=== PATIENT | female | born 1950 | race Caucasian/White ===

== ENCOUNTER 2022-05-03 20:28 | Emergency (ER) | payer MEDICARE, OTHER, SELFPAY | END 2022-05-03 21:40 | disposition left against medical advice (07) | PROVIDERS: Emergency Provider Emergency Medicine; PCP Nurse Practitioner Family | DX: S61.219A Laceration without foreign body of unspecified finger without damage to nail, initial encounter (principal); X58.XXXA Exposure to other specified factors, initial encounter; Y93.9 Activity, unspecified; Y92.9 Unspecified place or not applicable; Y99.9 Unspecified external cause status ==

== ENCOUNTER 2022-05-24 11:21 | Outpatient (REF) | payer MEDICARE, OTHER, SELFPAY | END 2022-05-24 11:22 | disposition home or self-care (01) | LOC: HO.LNP 11:21 | PROVIDERS: Visit Provider Nurse Practitioner Family | DX: N39.0 Urinary tract infection, site not specified (principal) | CPT/HCPCS: 87086 ==

== ENCOUNTER 2022-09-13 13:39 | Outpatient (REF) | payer MEDICARE, OTHER, SELFPAY ==
--- NOTE | ~2022-09-13 | XR_ITS ---
EXAMINATION: XR CHEST CLINICAL INFORMATION: Difficulty breathing COMPARISON: None TECHNIQUE: 2 views of the chest were obtained. FINDINGS: Lungs grossly are clear. Heart and pulmonary vessels normal. No pleural effusions. XR/XR chest 2V IMPRESSION: No active disease.
[2022-09-13 15:15] LABS: Influenza A PCR POSITIVE (Negative); Influenza B PCR NEGATIVE (Negative); Resp Syncy Virus RNA Qual PCR NEGATIVE (Negative); SARS COV2 PCR INHOUSE NEGATIVE (Negative)
== END 2022-09-13 13:40 | disposition home or self-care (01) ==
LOC: HO.HMGCX 13:39
PROVIDERS: PCP Nurse Practitioner Family; Visit Provider Nurse Practitioner Family
DX: Z20.822 Contact with and (suspected) exposure to COVID-19 (principal); R05.9 Cough, unspecified; R09.89 Other specified symptoms and signs involving the circulatory and respiratory systems; R68.89 Other general symptoms and signs
CPT/HCPCS: 0241U; 71046

== ENCOUNTER 2022-09-15 06:42 | Emergency (ER) | payer MEDICARE, OTHER, SELFPAY ==
--- NOTE | ~2022-09-15 | XR_ITS ---
EXAMINATION: XR CHEST CLINICAL INFORMATION: Flu and weakness COMPARISON: 09/13/2022 TECHNIQUE: Frontal view of the chest was obtained. FINDINGS: No significant abnormality is noted involving the heart, lungs, mediastinum, bony thorax or soft tissues. XR/XR chest 1V IMPRESSION: Unremarkable examination.
[2022-09-15 06:53] VITALS: BP 170/80; PULSE 68; RESP 16; O2SAT 96; BMI 23.1
[2022-09-15 06:59] VITALS: BP 144/69; PULSE 67; RESP 16; TEMP 36.4; O2SAT 98
[2022-09-15 07:03] VITALS: BP 154/72; PULSE 66; RESP 15; TEMP 37.1; O2SAT 96
[2022-09-15 08:28] LABS: MANUAL DIFF FLAG NO
[2022-09-15 08:30] LABS: Basophils Percent Auto 0.3 % (0-2); Eosinophils Percent Auto 0.3 % (0-4); Hemoglobin 11.8 g/dl (12.0-16.0); Imm Gran Abs Auto 0.01 X10*3/uL (0.00-0.03); Imm Gran Pct Auto 0.3 % (0.0-0.4); Lymphocytes Absolute Auto 0.8 X10*3/uL (1.2-4.9); Lymphocytes Percent Auto 23.1 % (20-40); Mean Corpuscular HGB Conc 32.8 g/dl (31.0-35.0); Mean Corpuscular Hemoglobin 27.8 pg (27.0-33.0); Mean Corpuscular Volume 84.9 fL (80.0-98.0); Mean Platelet Volume 10.4 fL (9.4-12.3); Monocytes Absolute Auto 0.5 X10*3/uL (0.1-1.2); Monocytes Percent Auto 12.8 % (2-11); Neutrophils Absolute Auto 2.3 x10*3/uL (2.0-8.3); Neutrophils Percent Auto 63.2 % (45-73); Platelet Count 184 X10*3/uL (160-400); Red Blood Count 4.24 X10*6/uL (4.20-5.50); Red Cell Distribution Width 13.9 % (11.0-16.0); White Blood Count 3.6 X10*3/uL (4.8-10.8)
[2022-09-15 08:51] LABS: Alanine Aminotransferase 19 U/L (0-31); Alkaline Phosphatase 72 U/L (39-117); Anion Gap 12 (12-20); Aspartate Amino Transferase 37 U/L (5-31); Bilirubin Total 0.5 mg/dL (0.0-1.0); Blood Urea Nitrogen 10 mg/dL (9-16); Calcium 8.6 mg/dL (8.4-10.2); Carbon Dioxide 24 mmol/L (22-29); Chloride 100 mmol/L (96-108); Creatinine Clr Calc Pharmacy 64.5; Estimated Glomerular Filt Rate > 60; Glucose Random 102 mg/dL (60-115); Sodium 132 mmol/L (135-145); Total Protein 6.4 g/dL (6.5-8.0)
--- NOTE | 2022-09-15 09:09 | ED.URI ---
HPI - URI/Sore Throat General Chief Complaint: Upper Respiratory Symptoms Stated Complaint: +FLU,WEAKNESS PER EMS Time Seen by Provider: 09/15/22 08:02 Source: patient Mode of arrival: ambulatory Limitations: no limitations History of Present Illness HPI Narrative: 72-year-old female diagnosed with this influena A at [facility], chest x-ray was done, and was started on Tessalon Perles and azithromycin for treatment of possible pneumonia. The patient was given direction to stop azithromycin as chest x-ray was negative for pneumonia. She states the tessalon perles have not help alleviate her cough. The at this time she is complaining of weakness, nausea, and dizziness. She states she has not been able to tolerate much p.o. intake, however; she states she has had no difficulty urinating. She denies any fever, chills, headache, changes of vision, falls or loss of balance, or gait changes. MD elicited complaint: cough and sore throat Onset (ago): day(s) (6) Consistency: constant Severity: moderate Pain scale (0-10): 5 Description of mucous: clear Able to tolerate fluids by mouth: Yes (moderate) Exacerbating factors: swallowing Relieving factors: nothing Associated symptoms: denies other symptoms Treatments prior to arrival: none Related Data Home Medications Medication Instructions Recorded Confirmed citalopram 10 mg tablet 10 mg PO DAILY 05/24/22 09/13/22 ibuprofen 800 mg tablet 800 mg PO BID PRN 05/24/22 09/13/22 levothyroxine 50 mcg tablet 50 mcg PO DAILY 05/24/22 09/13/22 omeprazole 40 mg capsule,delayed 40 mg PO DAILY 05/24/22 09/13/22 release rosuvastatin 5 mg tablet 5 mg PO DAILY 05/24/22 09/13/22 hydroxychloroquine 200 mg tablet 200 mg PO BID 09/13/22 09/13/22 Previous Rx's Medication Instructions Recorded phenazopyridine 100 mg tablet 100 mg PO TID PRN pain 2 days #6 05/24/22 (Pyridium) tabs sulfamethoxazole 800 1 tab PO Q12H 5 days #10 tabs 05/24/22 mg-trimethoprim 160 mg tablet (Bactrim DS) albuterol sulfate 90 mcg/actuation 2 puff inhalation Q4-6H PRN 09/13/22 aerosol inhaler shortness of breath or wheezing #8.5 grams azithromycin 250 mg tablet See Rx Instructions PO .COMPLEX #6 09/13/22 (Zithromax Z-Claude) tabs benzonatate 100 mg capsule 100 mg PO TID PRN cough #20 caps 09/13/22 ondansetron 4 mg disintegrating 4 mg PO Q6-8H PRN nausea and 09/13/22 tablet vomiting #20 tabs diphenhydramine HCl 25 mg capsule 25 mg PO TID PRN nausea and 09/15/22 (Benadryl) vomiting #10 caps metoclopramide HCl 5 mg tablet 10 mg PO BID PRN nausea and 09/15/22 (Reglan) vomiting #10 tabs Allergies Allergy/AdvReac Type Severity Reaction Status Date / Time acetazolamide Allergy Intermediate HEART PALP Unverified 09/13/22 12:50 [From DIAMOX SEQUELS] amoxicillin [AMOXICILLIN] Allergy Intermediate RASH Unverified 09/13/22 12:50 prednisone Allergy Unknown paplpitations, Verified 09/13/22 12:50 insomnia amoxiciilin Allergy Unknown Rash Uncoded 09/13/22 12:50 Diamox Sequels Allergy Unknown rapid Uncoded 09/13/22 12:50 heart rate visceral sutures Allergy Unknown not healing Uncoded 09/13/22 12:50 Review of Systems Review of Systems: In addition to documented HPI above, the additional ROS was obtained: Constitutional: No Weight loss, No Fever, No Chills ENT/Mouth: No Ear Pain, No Sinus Pain, No Hoarseness, No Swallowing Difficulty Cardiovascular: No Chest Pain, No SOB Respiratory: No Wheezing Gastrointestinal: No Diarrhea, No Constipation, No Abdominal pain Genitourinary: No Dysuria, No Urinary Frequency, No Hematuria, No Urinary Incontinence/retention, No Urgency, No Flank Pain Musculoskeletal: No joint pain, No Myalgias, No Joint Swelling Skin: No Skin Lesions, No rash Neuro: No Weakness, No Numbness, No Paresthesias0 Yes all other systems are reviewed and are negative [facility] Past Medical History Attestation statement: The following information was validated with the patient. Source: old records reviewed Social History Social History Smoked in Last 30 Days: No Use of substances other than those prescribed or required for medical reasons: No Advance Directives: No Physical Exam Vital Signs: Vital Signs: Last Vital Signs Temp 97.5 F 09/15/22 10:17 Pulse 61 09/15/22 10:17 Resp 16 09/15/22 10:17 BP 156/73 H 09/15/22 10:17 Pulse Ox 98 09/15/22 10:38 O2 Del Method 09/15/22 10:38 BMI result Body Mass Index 23.1 Const: General: cooperative, alert and awake Nutritional Appearance: well nourished Orientation/consciousness: patient oriented x3 Limitations: no limitations HEENT: Head: Yes normal to inspection, Yes normocephalic and Yes atraumatic Ears: hearing grossly normal bilaterally, external ears normal and TM's normal bilaterally General nose exam: Normal external nose present and Normal nares present Face and sinus: Yes normal facial exam, Yes sinuses nontender and Yes face symmetric Mouth: Normal oral and palatal mucosa present Teeth and gingiva: dentition normal Throat: Yes posterior oropharynx normal Eyes: General: appearance normal, both eyes and all related structures Visual Rooney: normal visual rooney by confrontation Alignment and Position: alignment normal Periorbital: periorbital findings normal Eyelids: Yes eyelids normal Conjunctivae: conjunctivae normal Sclerae: sclerae normal Corneas: corneas normal Pupils: Equal, round and reactive pupils present EOM: EOMs intact bilaterally Neck: Neck: Yes normal visual inspection, Yes full ROM and Yes no lymphadenopathy Chest: Chest palpation & inspection: normal inspection of the chest Resp: Effort & Inspection: normal respiratory effort, Actively coughing and not labored Auscultation: no crackles, no rhonchi, no wheezes and diminished lung sounds bilateral throughout Cardio: Rate: regular rate Rhythm: regular rhythm GI: Inspection: Yes normal to inspection Palpation (GI): Soft to palpation and nontender Auscultation: normal bowel sounds : General: Yes no CVA tenderness Back/Spine/Pelvis: Back: no CVA tenderness Cervical Spine: cervical ROM normal Thoracic/Lumbar Spine: thoraco-lumbar ROM normal Skin: General skin exam: no rashes or lesions noted Neuro: General: patient oriented x3, tone normal and moves all extremities Cranial nerves: Yes Equal, round and reactive pupils present Cognition (Neuro): normal cognition Gait exam (Neuro): Normal gait present Motor exam (neuro): 5/5 motor strength present throughout Extrem: General: Yes normal to inspection, Yes full ROM and Yes capillary refill normal Psych: Appearance: grossly normal Mental Status: mental status grossly normal Speech and movement: Normal speech and movement present Affect: normal affect Attitude: cooperative Thought process: Normal thought process present Thought content: Normal thought content present Course Course Course Narrative: 0900: 1 L NS and IV zofran to be given for c/o weakness and nausea 1100: Pt states mild improvement in dizziness and weakness after NS bolus. Endorses continued nausea despite treatment with zofran. IV Reglan ordered. Urinalysis unremarkable. Blood work unremarkable based on HPI of nausea/vomiting. 1115: Additional 1 L NS bolus and reglan ordered for continued nausea 1215: Pt states improvement in dizziness, weakness, and nausea. Plan to discharge patient home with prescribed Reglan and Benadryl for antiemetics. Plan discussed with patient with no unanswered questions. Medications Administered Discontinued Medications Generic Name Dose Route Start Last Admin Trade Name Freq PRN Reason Stop Dose Admin Sodium Chloride 1,000 mls @ 999 mls/hr 09/15/22 09:00 09/15/22 11:30 Ns IV 09/15/22 10:00 Infused .Q1H1M JUWAN Infusion Sodium Chloride 1,000 mls @ 999 mls/hr 09/15/22 11:45 09/15/22 11:36 Ns IV 09/15/22 12:45 999 mls/hr .Q1H1M JUWAN Administration Metoclopramide HCl 10 mg 09/15/22 11:23 09/15/22 11:31 Metoclopramide Hcl 10 Mg/2 Ml Vial IVPUSH 09/15/22 11:24 10 mg ONCE ONE Administration Ondansetron HCl 4 mg 09/15/22 09:20 09/15/22 09:36 Ondansetron Hcl 4 Mg/2 Ml Vial IVPUSH 09/15/22 09:21 4 mg ONCE ONE Administration Medical Decision Making Medical Decision Making [facility] Narrative: 72-year-old female diagnosed with this influena A at [facility], chest x-ray was done, and was started on Tessalon Perles and azithromycin for treatment of possible pneumonia. Chest Xray unremarkable for cardiopulmonary pathology. Urinalysis unremarkable. Blood work unremarkable based on HPI of nausea/vomiting. Zofran given with no reduction in nausea. 2 L normal saline bolus given and IV Reglan given with improvement in dizziness, weakness, and nausea. Pt states improvement in dizziness, weakness, and nausea. Patient safe for discharge with plan to use prescribed Reglan and Benadryl for antiemetics and to use Tylenol and/or Motrin for management fever or discomfort.. HPI, PE, diagnostics and plan discussed with patient with no unanswered questions at this time. Educated to return to the emergency department with worsening dizziness, weakness, intractable nausea and/or vomiting, shortness of breath, chest pain, or any other concerning emergent symptoms. Recommended to follow-up with their primary care provider for further treatment and management. Lab Data MDM Lab Attestation statement: I reviewed the patient's lab results. Result Diagrams: 09/15/22 08:18 09/15/22 08:18 Labs: Lab Results 09/15/22 09/15/22 09/15/22 Range/Units 08:18 08:18 10:21 WBC 3.6 L (4.8-10.8) X10*3/uL RBC 4.24 (4.20-5.50) X10*6/uL Hgb 11.8 L (12.0-16.0) g/dl Hct 36.0 L (37.0-47.0) % MCV 84.9 (80.0-98.0) fL MCH 27.8 (27.0-33.0) pg MCHC 32.8 (31.0-35.0) g/dl RDW 13.9 (11.0-16.0) % Plt Count 184 (160-400) X10*3/uL MPV 10.4 (9.4-12.3) fL Immature Gran % (Auto) 0.3 (0.0-0.4) % Neut % (Auto) 63.2 (45-73) % Lymph % (Auto) 23.1 (20-40) % [place] % (Auto) 12.8 H (2-11) % Eos % (Auto) 0.3 (0-4) % Baso % (Auto) 0.3 (0-2) % Lymph # (Auto) 0.8 L (1.2-4.9) X10*3/uL [place] # (Auto) 0.5 (0.1-1.2) X10*3/uL Eos # (Auto) 0.0 (0.0-0.4) X10*3/uL Baso # (Auto) 0.0 (0.0-0.2) X10*3/uL Abs Immat Gran (auto) 0.01 (0.00-0.03) X10*3/uL Absolute Neuts (auto) 2.3 (2.0-8.3) x10*3/uL Absolute Nucleated RBC 0.000 (0.0-0.012) X10*3/uL Nucleated RBC % (auto) 0.0 (0.0-0.2) /100WBC Sodium 132 L (135-145) mmol/L Potassium 4.0 (3.3-5.1) mmol/L Chloride 100 (96-108) mmol/L Carbon Dioxide 24 (22-29) mmol/L Anion Gap 12 (12-20) BUN 10 (9-16) mg/dL Creatinine 0.66 (0.5-1.4) mg/dL Estim Creat Clear Calc 64.5 Estimated GFR > 60 Random Glucose 102 (60-115) mg/dL Calcium 8.6 (8.4-10.2) mg/dL Magnesium 1.9 (1.6-2.6) mg/dL Total Bilirubin 0.5 (0.0-1.0) mg/dL AST 37 H (5-31) U/L ALT 19 (0-31) U/L Alkaline Phosphatase 72 (39-117) U/L Total Protein 6.4 L (6.5-8.0) g/dL Albumin 4.0 (3.5-5.0) g/dL Urine Color Yellow Urine Appearance Clear Urine pH 7.0 (5.0-9.0) Ur Specific [place] 1.010 (1.005-1.025) Urine Protein Negative (Neg-Trace) mg/dL Urine Glucose (UA) Negative (Negative) mg/dL Urine Ketones Negative (Negative) mg/dL Urine Blood Negative (Negative) Urine Nitrite Negative (Negative) Ur Leukocyte Esterase Negative (Negative) Radiology Impression Discussion of test interpretation with radiology: I have reviewed the radiologist's reading. Radiologist Impression: EXAMINATION: XR CHEST CLINICAL INFORMATION: Flu and weakness COMPARISON: 09/13/2022 TECHNIQUE: Frontal view of the chest was obtained. FINDINGS: No significant abnormality is noted involving the heart, lungs, mediastinum, bony thorax or soft tissues. XR/XR chest 1V IMPRESSION: Unremarkable examination. ? Dictated By: Kofi Douglass MD Signed By: <Electronically signed by Kofi Douglass MD in OV> 09/15/22 0903 DD/ 0840 TD/TT:? Post Graduate Intern: Discharge Plan Discharge Clinical Impression: Influenza A, Cough Patient Disposition: Home, Self-Care Instructions: Influenza (ED), Droplet Precautions (ED), Acute Cough (ED) Additional Instructions: Your chest x-ray is negative. Your blood work is unremarkable. You have been treated today for dehydration and nausea related to influenza A. You are safe for discharge at this time. There are no antibiotics needed at this time. Two medications have been prescribed to your preferred pharmacy for control/treatment of nausea and vomiting. He may use [id number] Tylenol and/or Motrin, and [id number] cold medication with dosing as directed for management of fever and discomfort as needed. Please increase your fluid intake and rest. You may use tea with honey, hard candy, or lozenges to help with sore throat and cough. Please return to the emergency department with worsening dizziness, weakness, intractable nausea and/or vomiting, shortness of breath, chest pain, or any other concerning emergent symptoms. Recommended to follow-up with your primary care provider for further treatment and management. Prescriptions: New metoclopramide HCl [Reglan] 5 mg tablet 10 mg PO BID PRN (Reason: nausea and vomiting) Qty: 10 0RF diphenhydramine HCl [Benadryl] 25 mg capsule 25 mg PO TID PRN (Reason: nausea and vomiting) Qty: 10 0RF No Action citalopram 10 mg tablet 10 mg PO DAILY rosuvastatin 5 mg tablet 5 mg PO DAILY levothyroxine 50 mcg tablet 50 mcg PO DAILY omeprazole 40 mg capsule,delayed release(DR/EC) 40 mg PO DAILY ibuprofen 800 mg tablet 800 mg PO BID PRN sulfamethoxazole-trimethoprim [Bactrim DS] 800-160 mg tablet 1 tab PO Q12H 5 Days Qty: 10 0RF phenazopyridine [Pyridium] 100 mg tablet 100 mg PO TID PRN (Reason: pain) 2 Days Qty: 6 0RF hydroxychloroquine 200 mg tablet 200 mg PO BID ondansetron 4 mg tablet,disintegrating 4 mg PO Q6-8H PRN (Reason: nausea and vomiting) Qty: 20 0RF benzonatate 100 mg capsule 100 mg PO TID PRN (Reason: cough) Qty: 20 0RF albuterol sulfate 90 mcg/actuation HFA aerosol inhaler 2 puff inhalation Q4-6H PRN (Reason: shortness of breath or wheezing) Qty: 8.5 0RF azithromycin [Zithromax Z-Claude] 250 mg tablet See Rx Instructions PO .COMPLEX Qty: 6 0RF Rx Instructions: For 250 mg dose pack: take 500 mg today (day 1), then 250 mg for 4 days (days 2-5) PO Interventions: ED Discharge Assessment Last Done: 09/15/22 12:42 Discharge Date/Time: 09/15/22 12:59
[2022-09-15] MEDS: ondansetron HCL 4 MG/2 ML VIAL IVPUSH (09:36)
[2022-09-15] MEDS: 0.9 % Sodium Chloride 1,000 ML 999 ML IV ×2 (09:37→11:36)
[2022-09-15 10:17] VITALS: BP 156/73; PULSE 61; RESP 16; TEMP 36.4; O2SAT 98
[2022-09-15 10:32] LABS: Magnesium 1.9 mg/dL (1.6-2.6)
[2022-09-15 10:34] LABS: Appearance Urine Clear; Color Urine Yellow; Glucose Urine UA Negative (Negative); Leukocyte Esterase Urine Negative (Negative); Nitrite Urine Negative (Negative); Urine Blood Negative (Negative); Urine Ketones Negative (Negative); Urine Protein Negative (Neg-Trace)
[2022-09-15 10:38] VITALS: O2SAT 98
--- NOTE | 2022-09-15 10:39 | PC.NURSE ---
pt reports still having nausea, no vomiting and was able to tolerate water. pt does have a dry cough, ls clear
[2022-09-15] MEDS: Metoclopramide HCl 10 MG/2 ML VIAL IVPUSH (11:31)
== END 2022-09-15 12:59 | disposition home or self-care (01) ==
PROVIDERS: Nurse Practitioner Family; Emergency Provider Emergency Medicine Emergency Medical Services; PCP Nurse Practitioner Family
DX: J11.1 Influenza due to unidentified influenza virus with other respiratory manifestations (principal); R05.9 Cough, unspecified
CPT/HCPCS: 36415; 71045; 80053; 81003; 83735; 85025; 96361; 96374; 96375; 99284; J2405; J2765

== ENCOUNTER 2023-06-29 12:50 | Outpatient (AMB) | payer MEDICARE, OTHER, SELFPAY ==
--- NOTE | 2023-06-29 14:03 | MHC.OFFWIV ---
Intake Vital Signs 06/29/23 14:11 Height 5 ft 3 in Weight 155 lb BMI 27.5 BP 138/72 Blood Pressure Location Rt brachial Position Sitting Pulse 78 Pulse Source Pulse Oximeter Temp 97.8 F Temp Source Temporal Artery Scan Pulse Oximetry (%) 98 Intake Visit Reasons: EP, UTI? Intake Note: pt is here for c.o burning while urinating Patient Tobacco Use Status: Never used Tobacco Allergies acetazolamide [From DIAMOX SEQUELS] Allergy (Intermediate, Verified 06/29/23 14:11) HEART PALP amoxicillin [AMOXICILLIN] Allergy (Intermediate, Verified 06/29/23 14:11) RASH prednisone Allergy (Unknown, Verified 06/29/23 14:11) paplpitations, insomnia amoxiciilin Allergy (Unknown, Uncoded 03/02/23 14:53) Rash Diamox Sequels Allergy (Unknown, Uncoded 03/02/23 14:53) rapid heart rate visceral sutures Allergy (Unknown, Uncoded 03/02/23 14:53) not healing Do you need a note to return to daycare/school/sports/work: Yes HPI EP, UTI? HPI Details 73-year-old female patient presents today with 2 day history of burning with urination. Denies any fever, chills, or flank pain. She had some old Pyridium at home, which she has taken to which has reduced the burning. She has been increasing fluid intake. She leaves for vacation next week and is fearful she has a UTI. Denies any vaginal symptoms PFS Social History Patient Tobacco Use Status: Never used Tobacco Review of Systems Const All systems reviewed & are unremarkable except as noted in HPI and below Physical Exam Vital Signs: Last Vital Signs Temp 97.8 F 06/29/23 14:11 Pulse 78 06/29/23 14:11 BP 138/72 06/29/23 14:11 Pulse Ox 98 06/29/23 14:11 BMI result Body Mass Index 27.5 Const General: cooperative, healthy appearing, comfortable and no acute distress Resp Effort & Inspection: normal respiratory effort and able to speak in complete sentences Auscultation: clear to auscultation bilaterally Cardio Jugular venous distension: no JVD Palpation: normal PMI Rate: regular rate Rhythm: regular rhythm General: Yes bladder normal to palpation and Yes no CVA tenderness Bimanual exam- vagina & uterus: bladder normal to palpation Back/Spine/Pelvis Back: no CVA tenderness Skin General skin exam: no rashes or lesions noted Extrem General: Yes capillary refill normal and Yes no clubbing, cyanosis or edema Psych Appearance: grossly normal Mental Status: mental status grossly normal Speech and movement: Normal speech and movement present Results AMB Urinalysis, Automated UA Leukoctes 15 Alisia/uL Last Edit by Girish Dyer CMA on 06/29/23 14:18 UA Nitrite Negative Last Edit by Girish Dyer CMA on 06/29/23 14:18 UA Urobilinogen 0.2 mg/dL Last Edit by Girish Dyer CMA on 06/29/23 14:18 UA Protein 0 mg/dL Last Edit by Girish Dyer CMA on 06/29/23 14:18 UA pH 6.0 Last Edit by Girish Dyer CMA on 06/29/23 14:18 UA Blood 0 Niko/uL Last Edit by Girish Dyer CMA on 06/29/23 14:18 UA Specific [place] 1.005 Last Edit by Girish Dyer CMA on 06/29/23 14:18 UA Ketone Negative Last Edit by Girish Dyer CMA on 06/29/23 14:18 UA Bilirubin 0 mg/dL Last Edit by Girish Dyer CMA on 06/29/23 14:18 UA Glucose 0 mg/dL Last Edit by Girish Dyer CMA on 06/29/23 14:18 Results Reviewed Results Reviewed: Laboratory Last Values Urine pH (Auto) 6.0 06/29/23 14:17 Specific [place] (Auto) 1.005 06/29/23 14:17 Urine Protein (Auto) 0 mg/dL 06/29/23 14:17 Glucose (UA)(Auto) 0 mg/dL 06/29/23 14:17 Urine Ketones (Auto) Negative 06/29/23 14:17 Urine Blood (Auto) 0 Niko/uL 06/29/23 14:17 Urine Nitrite (Auto) Negative 06/29/23 14:17 Urine Bilirubin (Auto) 0 mg/dL 06/29/23 14:17 Urine Urobilinogen (Auto) 0.2 mg/dL 06/29/23 14:17 Leukocyte Esterase (Auto) 15 Alisia/uL 06/29/23 14:17 Assessment & Plan Assessment & Plan (1) Cystitis: Code(s): N30.90 - Cystitis, unspecified without hematuria Plan: Patient started on Bactrim BID 3 days for UTI. Urine dip showed leukocytes only, however patient confident that this is the start of a UTI given the dysuria. I also prescribed Pyridium. Encouraged increased hydration. If she does not improve with treatment, she should return to the clinic for further evaluation. She agrees to plan. Orders: Orders AMB Urinalysis Automated Today Z13.9 - Encounter for screening, unspecified Jenny Lino DO Medications: New sulfamethoxazole-trimethoprim 800-160 mg 1 tab PO BID 6 tabs 0RF 3 days N30.90 - Cystitis, unspecified without hematuria CONRADO Hernandez phenazopyridine 200 mg PO TID 6 tabs 0RF 6 doses N30.90 - Cystitis, unspecified without hematuria CONRADO Hernandez Coding Level of Care Code Est Pt Level 3 (82187) Diagnoses Cystitis N30.90
[2023-06-29 14:11] VITALS: BP 138/72; PULSE 78; TEMP 36.6; O2SAT 98; BMI 27.5
== END 2023-06-29 14:41 | disposition home or self-care (01) ==
PROVIDERS: PCP Nurse Practitioner Family; Visit Provider Nurse Practitioner Family
DX: N30.90 Cystitis, unspecified without hematuria (principal)
CPT/HCPCS: 81003; 99213

== ENCOUNTER 2023-07-10 13:45 | Outpatient (AMB) | payer MEDICARE, OTHER, SELFPAY ==
[2023-07-10 14:43] VITALS: BP 128/70; PULSE 73; TEMP 36.2; O2SAT 98; BMI 27.6
--- NOTE | 2023-07-10 14:43 | AM.OFFWIN_ITS ---
Intake Vital Signs 07/10/23 14:43 Height 5 ft 3 in Weight 156 lb BMI 27.6 BP 128/70 Blood Pressure Location Rt brachial Position Sitting Pulse 73 Pulse Source Pulse Oximeter Temp 97.2 F Pulse Oximetry (%) 98 Oxygen Delivery Method Room Air Intake Visit Reasons: EP LT knee Injury [phone] Intake Note: pt is here today for injury to LT knee Patient Tobacco Use Status: Never used Tobacco Allergies acetazolamide [From DIAMOX SEQUELS] Allergy (Intermediate, Verified 07/10/23 15:29) HEART PALP amoxicillin [AMOXICILLIN] Allergy (Intermediate, Verified 07/10/23 15:29) RASH prednisone Allergy (Unknown, Verified 07/10/23 15:29) paplpitations, insomnia amoxiciilin Allergy (Unknown, Uncoded 07/10/23 15:29) Rash Diamox Sequels Allergy (Unknown, Uncoded 07/10/23 15:29) rapid heart rate visceral sutures Allergy (Unknown, Uncoded 07/10/23 15:29) not healing Medication List - Last Reconciled 07/10/23 by Jin Smiley MD citalopram 10 mg PO DAILY hydroxychloroquine 200 mg PO BID ibuprofen 800 mg PO BID PRN levothyroxine 50 mcg PO DAILY omeprazole 40 mg PO DAILY phenazopyridine 200 mg PO TID 6 doses rosuvastatin 5 mg PO DAILY sulfamethoxazole-trimethoprim 800-160 mg 1 tab PO BID 3 days Do you need a note to return to daycare/school/sports/work: No HPI EP LT knee Injury [phone] HPI Details 73-year-old female presents to the [facility] for a sick visit. Will getting on to flight, patient slipped and injured her left knee. She was in the process of getting into her seat when this injury happened. Pain in the left knee has been persisting for the past week. She is having difficulty walking due to the pain. [facility] Social History Patient Tobacco Use Status: Never used Tobacco Physical Exam Vital Signs: Last Vital Signs Temp 97.2 F 07/10/23 14:43 Pulse 73 07/10/23 14:43 BP 128/70 07/10/23 14:43 Pulse Ox 98 07/10/23 14:43 Oxygen Delivery Method Room Air 07/10/23 14:43 BMI result Body Mass Index 27.6 Extrem Other: Left knee: No joint line tenderness. Pain on flexion. For pain on extension. Assessment & Plan Assessment & Plan (1) Sprain of left knee: Code(s): S83.92XA - Sprain of unspecified site of left knee, initial encounter Plan X-ray images were reviewed by me personally. Most likely a ligament injury. Knee brace applied. Meloxicam called in. Orders: Orders XR knee LT 3V Today S83.92XA - Sprain of unspecified site of left knee, initial encounter Coding Level of Care Code Est Pt Level 4 (82404) Diagnoses Sprain of left knee S83.92XA
== END 2023-07-10 16:00 | disposition home or self-care (01) ==
PROVIDERS: PCP Nurse Practitioner Family; Visit Provider Internal Medicine
DX: S83.92XA Sprain of unspecified site of left knee, initial encounter (principal)
CPT/HCPCS: 99214

== ENCOUNTER 2023-07-10 15:28 | Outpatient (REF) | payer MEDICARE, OTHER, SELFPAY ==
--- NOTE | ~2023-07-10 | XR_ITS ---
EXAMINATION: XR KNEE, LEFT CLINICAL INFORMATION: Sprain. COMPARISON: Bilateral standing view of the knees October 02, 2019. TECHNIQUE: Three views of the left knee. AP and lateral views are upright. FINDINGS: No fracture. No dislocation. Probable small suprapatellar joint effusion. There is moderate joint narrowing of the medial femoral tibial joint. No significant bone spur and no bony erosions. No chondrocalcinosis. XR/XR knee LT 3V IMPRESSION: 1. No acute osseous abnormality. 2. Probable small suprapatellar joint effusion. 3. Moderate joint narrowing of the medial femoral tibial joint.
== END 2023-07-10 15:29 | disposition home or self-care (01) ==
LOC: HO.HMGCX 15:28
PROVIDERS: PCP Nurse Practitioner Family; Visit Provider Internal Medicine
DX: S83.92XA Sprain of unspecified site of left knee, initial encounter (principal)
CPT/HCPCS: 73562

== ENCOUNTER 2023-11-20 09:01 | Outpatient (AMB) | payer MEDICARE, OTHER, SELFPAY ==
--- NOTE | 2023-11-20 09:11 | MHC.OFFWIV ---
Intake Vital Signs 11/20/23 09:14 Weight 67.302 kg BP 126/82 Blood Pressure Location Lt brachial Position Sitting Pulse 65 Pulse Source Pulse Oximeter Pulse Oximetry (%) 98 Oxygen Delivery Method Room Air Intake Visit Reasons: EP ears blocked Intake Note: Patient here for ear pain/blockage for 3 days. Patient Tobacco Use Status: Never used Tobacco Allergies acetazolamide [From DIAMOX SEQUELS] Allergy (Intermediate, Verified 11/20/23 09:13) HEART PALP amoxicillin [AMOXICILLIN] Allergy (Intermediate, Verified 11/20/23 09:13) RASH prednisone Allergy (Unknown, Verified 11/20/23 09:13) paplpitations, insomnia amoxiciilin Allergy (Unknown, Uncoded 11/20/23 09:13) Rash Diamox Sequels Allergy (Unknown, Uncoded 11/20/23 09:13) rapid heart rate visceral sutures Allergy (Unknown, Uncoded 11/20/23 09:13) not healing Do you need a note to return to daycare/school/sports/work: No HPI HPI Comments History of Present Illness Details 73-year-old female presents with fatigue, malaise, congestion, dry cough, rhinorrhea and severe right-sided ear pain that started yesterday. Patient reports she was not able to sleep well secondary to ear pain. She tried using heating pack with little to no relief. No sick contacts. Denies fevers, chills, chest pain, shortness of breath, headache, vision changes, dizziness, weakness, nausea, vomiting, abdominal pain Physical exam significant for Pharynx normal.? Erythematous and bulging right tympanic membrane and right ear canal. No effusion. Normal left ear. No mastoid tenderness bilaterally. Slight discomfort with manipulation of right ear. No discomfort with manipulation of external left ear. Concerns for viral illness with concomitant otitis media and externa. No signs of mastoiditis. Other differentials include sinusitis. Unlikely meningitis, encephalitis, ACS, PE, acute respiratory distress Plan will discharge with doxycycline as patient has an amoxicillin allergy and will also give Ciprodex. Educated patient on diagnosis and treatment plan, answered all question, patient verbalizes understanding. At this time patient will be discharged home, advised to return with new or worsening symptoms. Educated on worrisome signs and symptoms and when to return. At this time I feel comfortable discharge home. [facility] Social History Patient Tobacco Use Status: Never used Tobacco Review of Systems Const All systems reviewed & are unremarkable except as noted in HPI and below Physical Exam Vital Signs: Last Vital Signs Pulse 65 11/20/23 09:14 BP 126/82 11/20/23 09:14 Pulse Ox 98 11/20/23 09:14 Oxygen Delivery Method Room Air 11/20/23 09:14 Vital signs stable Appearance: Alert.? Oriented X3.? No acute distress.? Head: Normocephalic, atraumatic, no step-offs or deformities Eyes: Pupils equal, round and reactive to light.? ENT: Pharynx normal.? Erythematous and bulging right tympanic membrane and right ear canal. No effusion. Normal left ear. No mastoid tenderness bilaterally. Slight discomfort with manipulation of right ear. No discomfort with manipulation of external left ear. Neck: Normal inspection.? Neck supple.? CVS: Normal heart rate and rhythm.? Pulses normal.? Respiratory: No respiratory distress.? Breath sounds normal.? Abdomen: Soft and nontender.? Skin: Skin warm and dry.? Normal skin color.? Normal skin turgor.? Extremities: No lower extremity edema.? No calf ttp. 5/5 strength to bilateral upper and lower extremities Neuro: Oriented X 3.? No motor deficit.? No sensory deficit. CN 2-12 intact Assessment & Plan Assessment & Plan (1) Otitis media: Code(s): H66.90 - Otitis media, unspecified, unspecified ear Plan Take your medications as prescribed. If you were prescribed antibiotics today, it is important that you take your medication to their entirety, do not skip any doses, do not finish them early. Follow-up with your primary care provider this week. Return to the emergency department with new or worsening symptoms. Such as fevers, chills, chest pain, shortness of breath, nausea, vomiting, dizziness, headache, vision changes, lethargy In case of emergency call 911 Medications: New doxycycline hyclate 100 mg PO BID 20 caps 0RF 10 days ciprofloxacin-dexamethasone 0.3-0.1 % 4 drps otic (ears) BID 7.5 mL 0RF 7 days Coding Level of Care Code Est Pt Level 3 (67115) Diagnoses Otitis media H66.90
[2023-11-20 09:14] VITALS: BP 126/82; PULSE 65; O2SAT 98
== END 2023-11-20 15:16 | disposition home or self-care (01) ==
PROVIDERS: PCP Nurse Practitioner Family; Visit Provider Physician Assistant
DX: H66.90 Otitis media, unspecified, unspecified ear (principal)
CPT/HCPCS: 99213

== ENCOUNTER 2024-07-08 11:56 | Outpatient (AMB) | payer MEDICARE, OTHER, SELFPAY ==
--- OUTSIDE RECORDS SUMMARY | 2024-07-08 11:59 | XMS_ITS | Continuity of Care Document ---
Author Organization [facility] ter Address [address] [place] [id number]- Care Team Providers Care Spa Assistant Manager Name Role Phone Ashli Huitron NP Primary Care Physician [phone] Encounter 04/16/24 - 04/17/[address] [id number] Attending Physician: Not on Staff, Attending MD Referring Physician: Not on Staff, Referring MD Allergies, Adverse Reactions, Alerts Substance Reaction Severity Status ampicillin Rash Active amoxicillin rash Active predniSONE heart palpitations Active Macrodantin Active Diamox heart palpitations Active Medications biotin 1000 mcg oral tablet 1 tablet = 1,000 mcg, By Mouth, Daily, # 30 tablet, 0 Refills, Maintenance, 10/23/20 9:14:00 EST, Tablet, Partial fill upon patient request if the prescription is for a schedule II opioid drug. Start Date: 10/23/20 Status: Ordered Claritin 10 mg oral tablet 10 mg, 1, tablet, By Mouth, Daily, # 30 tablet, Refills 0, Maintenance, 10/23/20 9:21:00 EST, Partial fill upon patient request if the prescription is for a schedule II opioid drug. Start Date: 10/23/20 Status: Ordered Crestor 5 mg oral tablet 1 tablet = 5 mg, By Mouth, Daily, # 30 tablet, 0 Refills, Maintenance, 11/11/15 18:34:26, Tablet Start Date: 11/11/15 Status: Ordered Culturelle Digestive Health By Mouth, Daily, 0 Refills, Maintenance, 10/23/20 9:14:00 EST, Partial fill upon patient request ifthe prescription is for a schedule II opioid drug. Start Date: 10/23/20 Status: Ordered levothyroxine 0.025 mg oral tablet 1 tablet = 25 mcg, By Mouth, Daily, # 30 tablet, 0 Refills, Maintenance, 11/11/15 18:34:55, Tablet Start Date: 11/11/15 Status: Ordered magnesium gluconate 250 mg oral tablet 1 tablet = 250 mg, By Mouth, Daily at bedtime, # 60 tablet, 0 Refills, Maintenance, 10/23/20 9:52:00 EST, Tablet, Partial fill upon patient request if the prescription is for a schedule II opioid drug. Start Date: 10/23/20 Status: Ordered Multivitamin By Mouth, Daily, 0 Refills, Maintenance Start Date: 04/07/11 Status: Ordered Plaquenil 200 mg oral tablet 200 mg, 1, tablet, By Mouth, Daily, Refills 0, Maintenance, 10/23/20 9:13:00 EST, Partial fill uponpatient request if the prescription is for a schedule II opioid drug. Start Date: 10/23/20 Status: Ordered Vitamin C By Mouth, Daily, 0 Refills, Maintenance, 10/23/20 9:52:00 EST, Partial fill upon patient request ifthe prescription is for a schedule II opioid drug. Start Date: 10/23/20 Status: Ordered Vitamin D3 1000 intl units oral capsule 1 capsule = 1,000 International_Units, By Mouth, Daily, # 100 capsule, 0 Refills, Maintenance, 10/23/20 9:52:00 EST, Capsule, Partial fill upon patient request if the prescription is for a schedule II opioid drug. Start Date: 10/23/20 Status: Ordered Problem List Condition Confirmation Course Effective Dates Status Health [facility] Informant Hyperlipidemia Confirmed Active Results Radiology Reports * Exam Date Time Procedure Performing Provider Status 04/16/24 8:20 PM MRI Ext Lower W/O Contrast Right Auth (Verified) Notes: (MRI Ext Lower W/O Contrast Right) Reason For Exam: Pain In Right Hip;Pain In Right Hip RESULT: MRI Ext Lower W/O Contrast [facility] VISIT NUMBER :[id number] Patient Name: Tamika Samano Date of : 1950 Date of Exam: 04-16-2024 Referring Physician: [place] [id number] Exam: MR Hip Unilat (C-) CPT 31198 - Right Room Description: [address] CLINICAL HISTORY: Pain In Right Hip TECHNIQUE: MR of the right hip was performed without intravenous contrast. COMPARISON: None. FINDINGS: Right hip: Bone: Mild femoral head-neck marginal osteophyte formation is present. There is no evidence of osteonecrosis or fracture. Acetabular labrum: Nondisplaced tear of the anterior superior labrum seen for example on axial image 11 of series 4 and sagittal image 28 of series 5. Articular cartilage: Mild diffuse thinning of the hip articular cartilage. No focal defects are seen. No evidence of joint effusion. Muscle and tendons: Tendinosis and surrounding soft tissue edema signal at the gluteus medius and minimus insertions. Iliopsoas and hamstring insertions are intact. 1.8 x 0.9 cm peritrochanteric collection. Included musculature demonstrates no evidence of atrophy or fatty infiltration. Large [id number] pelvis: Evaluation of the contralateral hip, sacroiliac joints, pubic symphysis are unremarkable a large [id number] images. Transitional anatomy at the lumbosacral junction and degenerative changes within the included portion of the lower lumbar spine. Technique was not optimized for evaluation of the pelvic organs. IMPRESSION: Gluteal tendinosis and signs of accompanying peritrochanteric bursitis Mild degenerative changes of the right hip. No evidence of fracture or avascular necrosis Thin nondisplaced tear of the anterior superior labrum Electronically Signed By: Tr Beasley MD Dictated By: Not on Staff SHIV MD Dictated Date/Time: 04/17/24 9:12 am Reviewed By: Not on Staff , SHIV SHEFFIELD Signed By: Not on Staff , SHIV SHEFFIELD Signed Date/Time: 04/17/24 9:12 am Transcribed By: GWEN Transcribed Date/Time: 04/17/24 9:12 am Social History Social History Type Response Smoking Status Never (less than 100 in lifetime) entered on: 10/23/20 Sex Patient Care team information Care Team Personnel Name: Ashli Huitron NP Position: [facility] Outreach Member Role: PCP Address: Address: [address] [facility] [place] [address]- Care Team Related Persons Name: MANDA SAMANO Address: home [address] [place] [id number]
--- NOTE | 2024-07-08 12:35 | MHC.OFFWIV ---
Intake Vital Signs 07/08/24 12:37 Height 5 ft 3 in Weight 153 lb BMI 27.1 BP 140/90 H Blood Pressure Location Rt brachial Position Sitting Pulse 58 Pulse Source Pulse Oximeter Pulse Oximetry (%) 98 Oxygen Delivery Method Room Air Intake Visit Reasons: EP Pulled muscle in back Intake Note: Patient here for left arm soreness that has on and off for about 1 month, she states she has a lump on left side of upper back. Patient Tobacco Use Status: Never used Tobacco Allergies acetazolamide [From DIAMOX SEQUELS] Allergy (Intermediate, Verified 07/08/24 12:38) HEART PALP amoxicillin [AMOXICILLIN] Allergy (Intermediate, Verified 07/08/24 12:38) RASH prednisone Allergy (Unknown, Verified 07/08/24 12:38) paplpitations, insomnia amoxiciilin Allergy (Unknown, Uncoded 07/08/24 12:38) Rash Diamox Sequels Allergy (Unknown, Uncoded 07/08/24 12:38) rapid heart rate visceral sutures Allergy (Unknown, Uncoded 07/08/24 12:38) not healing Do you need a note to return to daycare/school/sports/work: No HPI HPI Comments History of Present Illness Details Patient is a 74-year-old female complaining of 1 month of shoulder pain and a lump on her back. She states it is worse when she does certain movements like extending her arm inward to the small of her back. She states she has taken some ibuprofen here and there but has not really noticed any improvement when she takes it. She denies any injury to the area. [facility] Social History Patient Tobacco Use Status: Never used Tobacco Review of Systems Const All systems reviewed & are unremarkable except as noted in HPI and below Physical Exam Vital Signs: BMI result Body Mass Index 27.1 Const General: cooperative, healthy appearing and comfortable Orientation/consciousness: patient oriented x3 HEENT Head: Yes normal to inspection and Yes normocephalic General nose exam: Normal external nose present Face and sinus: Yes normal facial exam Eyes General: appearance normal, both eyes and all related structures Resp Effort & Inspection: normal respiratory effort and able to speak in complete sentences Back/Spine/Pelvis Cervical Spine: cervical ROM normal and No Cervical spine tenderness Thoracic/Lumbar Spine: thoracic and lumbar spine normal to inspection, paraspinal muscle tenderness (palpable lump) on the left in the upper thoracic, No thoracic spinal tenderness and No lumbar spinal tenderness Neuro General: patient oriented x3 Extrem Other: Straight leg raise test negative on right; Straight leg raise test negative on left; Reflexes normal ankle and knee bilaterally; motor strength normal bilaterally Assessment & Plan Assessment & Plan (1) Muscle spasm of back: Code(s): M62.830 - Muscle spasm of back Plan: Likely muscle spasm, since there was no injury, no indication for an x-ray at this time. Recommended she use heat, push on the area for 20-30 secs, repeat 4 or 5 times every few hours. Also sending muscle relaxer to pharmacy. Reviewed risks and benefits of taking muscle relaxers as well as warnings not to take while driving or drinking alcohol. If no improvement taking the muscle relaxers and some Aleve for the next couple of days with some rest, she should follow up with her PCP. Plan See above Medications: New cyclobenzaprine 5 mg PO Q8H PRN 10 tabs 0RF Muscle Spasm Coding Level of Care Code New Pt Level 3 (54638) Diagnoses Muscle spasm of back M62.830
[2024-07-08 12:37] VITALS: BP 140/90; PULSE 58; O2SAT 98; BMI 27.1
== END 2024-07-08 12:50 | disposition home or self-care (01) ==
PROVIDERS: Visit Provider Physician Assistant
DX: M62.830 Muscle spasm of back (principal)

== ENCOUNTER → 2024-07-08 11:56 | Outpatient (BNVA) | payer MEDICARE, OTHER, SELFPAY | PROVIDERS: Visit Provider Physician Assistant | DX: M62.830 Muscle spasm of back (principal) | CPT/HCPCS: 99202 ==

== ENCOUNTER 2024-07-16 08:03 | Outpatient (REF) | payer MEDICARE, OTHER, SELFPAY ==
[2024-07-16 11:43] LABS: Adenovirus PCR Not Detected (Not Detect.); Bordetella parapertussis PCR Not Detected (Not Detect.); Bordetella pertussis PCR Not Detected (Not Detect.); Chlamydia pneumoniae PCR Not Detected (Not Detect.); Coronavirus 229E PCR Not Detected (Not Detect.); Coronavirus HKU1 PCR Not Detected (Not Detect.); Coronavirus NL63 PCR Not Detected (Not Detect.); Coronavirus OC43 PCR Not Detected (Not Detect.); Human metapneumovirus PCR Not Detected (Not Detect.); Influenza A PCR Not Detected (Not Detect.); Influenza B PCR Not Detected (Not Detect.); Mycoplasma pneumoniae PCR Not Detected (Not Detect.); Parainfluenza 1 PCR Not Detected (Not Detect.); Parainfluenza 2 PCR Not Detected (Not Detect.); Parainfluenza 3 PCR Not Detected (Not Detect.); Parainfluenza 4 PCR Not Detected (Not Detect.); RSV PCR Not Detected (Not Detect.); Rhino/Enterovirus PCR Not Detected (Not Detect.)
[2024-07-16 11:46] LABS: SARS-CoV-2 PCR Detected (Not Detect.)
== END 2024-07-16 08:04 | disposition home or self-care (01) ==
LOC: HO.LNP 08:03
PROVIDERS: Visit Provider Physician Assistant
DX: J06.9 Acute upper respiratory infection, unspecified (principal); R05.8 Other specified cough; J02.9 Acute pharyngitis, unspecified; H92.03 Otalgia, bilateral; R51.9 Headache, unspecified
CPT/HCPCS: 71046; 87633; 99212

== ENCOUNTER 2024-07-16 08:03 | Outpatient (AMB) | payer MEDICARE, OTHER, SELFPAY ==
--- NOTE | 2024-07-16 08:13 | MHC.OFFWIV ---
Intake Vital Signs 07/16/24 08:14 Weight 155 lb BP 140/80 H Blood Pressure Location Rt brachial Position Sitting Pulse 68 Pulse Source Pulse Oximeter Temp 98.7 F Temp Source Oral Pulse Oximetry (%) 97 Oxygen Delivery Method Room Air Intake Visit Reasons: EP-cough, sore throat, ear ache Intake Note: Patient here for cough,congestion, sore throat headache, bilat ear pain that started monday Patient Tobacco Use Status: Never used Tobacco Allergies acetazolamide [From DIAMOX SEQUELS] Allergy (Intermediate, Verified 07/16/24 08:17) HEART PALP amoxicillin [AMOXICILLIN] Allergy (Intermediate, Verified 07/16/24 08:17) RASH prednisone Allergy (Unknown, Verified 07/16/24 08:17) paplpitations, insomnia amoxiciilin Allergy (Unknown, Uncoded 07/16/24 08:17) Rash Diamox Sequels Allergy (Unknown, Uncoded 07/16/24 08:17) rapid heart rate visceral sutures Allergy (Unknown, Uncoded 07/16/24 08:17) not healing Do you need a note to return to daycare/school/sports/work: No HPI HPI Comments History of Present Illness Details Patient is a 74-year-old female complaining of 3 days of a barky dry cough, head congestion, bilateral ear pain, sore throat and a headache. She denies any shortness of breath or fevers, nausea vomiting or diarrhea. She denies a history of asthma or COPD. She has not taken any medications to try to make herself feel better. She did not test for COVID at home. [facility] Social History Patient Tobacco Use Status: Never used Tobacco Review of Systems Const All systems reviewed & are unremarkable except as noted in HPI and below Physical Exam Vital Signs: Last Vital Signs Temp 98.7 F 07/16/24 08:14 Pulse 68 07/16/24 08:14 BP 140/80 H 07/16/24 08:14 Pulse Ox 97 07/16/24 08:14 Oxygen Delivery Method Room Air 07/16/24 08:14 Const General: cooperative, healthy appearing, comfortable and no acute distress Orientation/consciousness: patient oriented x3 Limitations: no limitations HEENT Head: Yes normal to inspection Ears: hearing grossly normal bilaterally, external ears normal and TM's normal bilaterally General nose exam: Normal external nose present, Normal nares present and No nasal discharge present Face and sinus: Yes normal facial exam and Yes sinus tenderness (Slight maxillary bilateral) Mouth: Normal oral and palatal mucosa present and moist mucous membranes Throat: Yes tonsils normal, Yes uvula midline and Yes posterior oropharynx abnormal (Erythema) Eyes General: appearance normal, both eyes and all related structures Neck Neck: Yes normal visual inspection Resp Effort & Inspection: normal respiratory effort, able to speak in complete sentences, Actively coughing, no respiratory distress, not tachypneic, no tripod positioning and no use of accessory muscles Auscultation: clear to auscultation bilaterally (Slightly dim) Cardio Rate: regular rate Rhythm: regular rhythm Heart sounds: normal S1 and S2 Skin General skin exam: no rashes or lesions noted Neuro General: patient oriented x3 Extrem General: Yes normal to inspection and Yes no clubbing, cyanosis or edema Assessment & Plan Assessment & Plan (1) URI (upper respiratory infection): Code(s): J06.9 - Acute upper respiratory infection, unspecified Qualifiers: URI type: unspecified URI Qualified Code(s): J06.9 - Acute upper respiratory infection, unspecified Plan: Vital signs are stable, patient is well-appearing lung sounds are slightly dim. We will get a chest x-ray and send some codeine cough syrup. Sent a respiratory pathogen panel, if it is negative, patient is requesting a Z-Claude. Plan see above Orders: Orders XR chest 2V Today R05.9 - Cough, unspecified Resp Pathogen Panel - [facility] Today J06.9 - Acute upper respiratory infection, unspecified Medications: New codeine-guaifenesin 10-100 mg/5 mL 10 mL PO Q4-6H PRN 120 mL 0RF cold symptoms Coding Level of Care Code New Pt Level 4 (71628) Diagnoses Upper respiratory tract infection, unspecified type J06.9 URI type: unspecified URI
[2024-07-16 08:14] VITALS: BP 140/80; PULSE 68; TEMP 37.1; O2SAT 97
== END 2024-07-16 08:57 | disposition home or self-care (01) ==
PROVIDERS: Visit Provider Physician Assistant
DX: J06.9 Acute upper respiratory infection, unspecified (principal)

== ENCOUNTER 2024-07-16 08:29 | Outpatient (REF) | payer MEDICARE, OTHER, SELFPAY ==
--- NOTE | ~2024-07-16 | XR_ITS ---
EXAMINATION: XR CHEST CLINICAL INFORMATION: Cough COMPARISON: 09/15/2022 TECHNIQUE: 2 views of the chest were obtained. FINDINGS: No focal consolidation, pulmonary edema, or pleural effusion. Stable cardiomediastinal silhouette. XR/XR chest 2V IMPRESSION: No acute cardiopulmonary findings Electronically signed by: Brian Kat MD 07/16/2024 12:06 PM EDT
== END 2024-07-16 08:30 | disposition home or self-care (01) ==
LOC: HO.HMGCX 08:29
PROVIDERS: PCP Nurse Practitioner Primary Care; Visit Provider Physician Assistant
DX: R05.9 Cough, unspecified (principal); J06.9 Acute upper respiratory infection, unspecified
CPT/HCPCS: 71046; 99212

== ENCOUNTER 2024-07-17 10:32 | Outpatient (AMB) | payer MEDICARE, OTHER, SELFPAY ==
--- NOTE | 2024-07-17 10:36 | AM.OFFWIN_ITS ---
Intake Vital Signs 07/17/24 10:37 Height 5 ft 3 in Weight 155 lb BMI 27.5 BP 110/70 Blood Pressure Location Rt brachial Position Sitting Pulse 66 Pulse Source Pulse Oximeter Temp 97.8 F Temp Source Oral Pulse Oximetry (%) 98 Oxygen Delivery Method Room Air Intake Visit Reasons: EP ? UTI Intake Note: Patient here for burning when urination and bladder pressure. Patient Tobacco Use Status: Never used Tobacco Allergies acetazolamide [From DIAMOX SEQUELS] Allergy (Intermediate, Verified 07/17/24 10:36) HEART PALP amoxicillin [AMOXICILLIN] Allergy (Intermediate, Verified 07/17/24 10:36) RASH prednisone Allergy (Unknown, Verified 07/17/24 10:36) paplpitations, insomnia amoxiciilin Allergy (Unknown, Uncoded 07/17/24 10:36) Rash Diamox Sequels Allergy (Unknown, Uncoded 07/17/24 10:36) rapid heart rate visceral sutures Allergy (Unknown, Uncoded 07/17/24 10:36) not healing Do you need a note to return to daycare/school/sports/work: No HPI HPI Comments History of Present Illness Details Patient is a 74-year-old female complaining of 1 day of increased pressure in her bladder, burning with urination. She states this is usually it happens when she has a UTI. She tells me that when she felt this way, she immediately took a Pyridium that she had at home. She denies any fevers, blood in her urine or low back pain or history of kidney stones. [facility] Social History Patient Tobacco Use Status: Never used Tobacco Review of Systems Const All systems reviewed & are unremarkable except as noted in HPI and below Physical Exam Vital Signs: Last Vital Signs Temp 97.8 F 07/17/24 10:37 Pulse 66 07/17/24 10:37 BP 110/70 07/17/24 10:37 Pulse Ox 98 07/17/24 10:37 Oxygen Delivery Method Room Air 07/17/24 10:37 BMI result Body Mass Index 27.5 Const General: cooperative, healthy appearing, comfortable and no acute distress Orientation/consciousness: patient oriented x3 HEENT Head: Yes normal to inspection Ears: hearing grossly normal bilaterally General nose exam: Normal external nose present Face and sinus: Yes normal facial exam Neck Neck: Yes normal visual inspection, Yes trachea midline and Yes supple Resp Effort & Inspection: normal respiratory effort and able to speak in complete sentences Skin General skin exam: no rashes or lesions noted Neuro General: patient oriented x3 Psych Appearance: grossly normal Speech and movement: Normal speech and movement present Attitude: cooperative Thought process: Normal thought process present Insight: Good insight present (Psych) Judgement: Good judgement present (Psych) Assessment & Plan Assessment & Plan (1) Urinary tract infection: Code(s): N39.0 - Urinary tract infection, site not specified Qualifiers: Urinary tract infection type: acute cystitis Hematuria presence: without hematuria Qualified Code(s): N30.00 - Acute cystitis without hematuria Plan: Patient requesting more Pyridium, sent to pharmacy along with Bactrim. Plan See above Medications: New sulfamethoxazole-trimethoprim 800-160 mg (Bactrim DS) 1 tab PO Q12H 6 tabs 0RF phenazopyridine 100 mg PO TID PRN 6 tabs 0RF Pain Coding Level of Care Code Est Pt Level 3 (19831) Diagnoses Acute cystitis without hematuria N30.00 Urinary tract infection type: acute cystitis Hematuria presence: without hematuria
[2024-07-17 10:37] VITALS: BP 110/70; PULSE 66; TEMP 36.6; O2SAT 98; BMI 27.5
== END 2024-07-17 11:37 | disposition home or self-care (01) ==
PROVIDERS: Visit Provider Physician Assistant
DX: N30.00 Acute cystitis without hematuria (principal); Z13.9 Encounter for screening, unspecified

== ENCOUNTER → 2024-07-17 10:32 | Outpatient (BNVA) | payer MEDICARE, OTHER, SELFPAY | PROVIDERS: Visit Provider Physician Assistant | DX: N30.00 Acute cystitis without hematuria (principal) | CPT/HCPCS: 81003; 99212 ==

== ENCOUNTER 2024-07-18 08:10 | Outpatient (AMB) | payer MEDICARE, OTHER, SELFPAY ==
--- NOTE | 2024-07-18 08:31 | MHC.OFFWIV ---
Intake Vital Signs 07/18/24 08:34 Height 5 ft 3 in Weight 155 lb BMI 27.5 BP 120/80 Blood Pressure Location Rt brachial Position Sitting Pulse 72 Pulse Source Pulse Oximeter Pulse Oximetry (%) 98 Oxygen Delivery Method Room Air Intake Visit Reasons: EP Allergic reaction Intake Note: Patient here for allergic reaction to bactrim Patient Tobacco Use Status: Never used Tobacco Allergies acetazolamide [From DIAMOX SEQUELS] Allergy (Intermediate, Verified 07/17/24 10:36) HEART PALP amoxicillin [AMOXICILLIN] Allergy (Intermediate, Verified 07/17/24 10:36) RASH prednisone Allergy (Unknown, Verified 07/17/24 10:36) paplpitations, insomnia Sulfa (Sulfonamide Antibiotics) Adverse Reaction (Mild, Verified 07/18/24 08:33) Anaphylaxis sulfamethoxazole [From Bactrim] Adverse Reaction (Mild, Verified 07/18/24 08:34) Anaphylaxis trimethoprim [From Bactrim] Adverse Reaction (Mild, Verified 07/18/24 08:34) Anaphylaxis amoxiciilin Allergy (Unknown, Uncoded 07/17/24 10:36) Rash Diamox Sequels Allergy (Unknown, Uncoded 07/17/24 10:36) rapid heart rate visceral sutures Allergy (Unknown, Uncoded 07/17/24 10:36) not healing Do you need a note to return to daycare/school/sports/work: No HPI HPI Comments History of Present Illness Details Patient is a 74-year-old female presenting with 2 complaints. Her 1st complaint is she was in this clinic yesterday where she was diagnosed with a UTI and according to her allergies, she was only allergic to amoxicillin so she was prescribed Bactrim. She tells me she went home took 2 doses of the medication and then woke up at 02:00 o'clock this morning feeling like her tongue was swollen and her lips were swollen so she took a Zyrtec and is now feeling better. We added this medication to her allergy list this morning. She is also seeing her cough is getting worse and would like me to listen to her lungs. She has been taking Mucinex and does have codeine cough syrup that helps. [facility] Social History Patient Tobacco Use Status: Never used Tobacco Review of Systems Const All systems reviewed & are unremarkable except as noted in HPI and below Physical Exam Vital Signs: Last Vital Signs Pulse 72 07/18/24 08:34 BP 120/80 07/18/24 08:34 Pulse Ox 98 07/18/24 08:34 Oxygen Delivery Method Room Air 07/18/24 08:34 BMI result Body Mass Index 27.5 Const General: cooperative, healthy appearing, comfortable and no acute distress Orientation/consciousness: patient oriented x3 Limitations: no limitations HEENT Head: Yes normal to inspection Ears: hearing grossly normal bilaterally and external ears normal General nose exam: Normal external nose present, Normal nares present and No nasal discharge present Face and sinus: Yes normal facial exam and Yes sinuses nontender Mouth: Normal oral and palatal mucosa present and moist mucous membranes Throat: Yes tonsils normal, Yes uvula midline and Yes posterior oropharynx abnormal (Erythema) Eyes General: appearance normal, both eyes and all related structures Neck Neck: Yes normal visual inspection Resp Effort & Inspection: normal respiratory effort, able to speak in complete sentences, Actively coughing, no respiratory distress, not tachypneic, no tripod positioning and no use of accessory muscles Auscultation: clear to auscultation bilaterally Cardio Rate: regular rate Rhythm: regular rhythm Heart sounds: normal S1 and S2 Skin General skin exam: no rashes or lesions noted Neuro General: patient oriented x3 Extrem General: Yes normal to inspection and Yes no clubbing, cyanosis or edema Assessment & Plan Assessment & Plan (1) Allergic reaction: Code(s): T78.40XA - Allergy, unspecified, initial encounter Qualifiers: Encounter type: initial encounter Qualified Code(s): T78.40XA - Allergy, unspecified, initial encounter Plan: Patient does not have any edema of her lips or tongue, vital signs are stable lung sounds are clear. We will add that to her allergy list and prescribed ciprofloxacin. I did review in length black box warning for ciprofloxacin and the patient over the age of 60, risks and benefits of medication. And understands. She was treated with 1 day of Bactrim so we will just do 2 days of Cipro. (2) URI (upper respiratory infection): Code(s): J06.9 - Acute upper respiratory infection, unspecified Qualifiers: URI type: unspecified URI Qualified Code(s): J06.9 - Acute upper respiratory infection, unspecified Plan: Recommended continuing Mucinex and the codeine cough syrup only at night so she can get some rest. Plan See above Medications: New ciprofloxacin HCl 250 mg PO q12h 4 tabs 0RF Coding Level of Care Code Est Pt Level 4 (90085) Diagnoses Allergic reaction, initial encounter T78.40XA Encounter type: initial encounter Upper respiratory tract infection, unspecified type J06.9 URI type: unspecified URI
[2024-07-18 08:34] VITALS: BP 120/80; PULSE 72; O2SAT 98; BMI 27.5
== END 2024-07-18 09:07 | disposition home or self-care (01) ==
PROVIDERS: Visit Provider Physician Assistant
DX: T78.40XA Allergy, unspecified, initial encounter (principal); J06.9 Acute upper respiratory infection, unspecified

== ENCOUNTER → 2024-07-18 08:10 | Outpatient (BNVA) | payer MEDICARE, OTHER, SELFPAY | PROVIDERS: Visit Provider Physician Assistant | DX: T78.40XA Allergy, unspecified, initial encounter (principal); J06.9 Acute upper respiratory infection, unspecified | CPT/HCPCS: 99212 ==

== ENCOUNTER 2025-02-22 10:29 | Outpatient (AMB) | payer MEDICARE, OTHER, SELFPAY ==
--- OUTSIDE RECORDS SUMMARY | 2025-02-22 10:32 | XMS_ITS | Clinical Summary ---
Author Organization [facility] Address [address] [place] [address] Care Team Providers Care Registered Medical Transcriptionist Name Role Phone Mario Alberto Lozano Primary Care Provider [phone] Allergies Active Allergy Reactions Criticality Noted Date Comments Amoxicillin 03/01/2011 Ampicillin 03/01/2011 Acetazolamide 03/01/2011 Medications Aspirin 81 MG OR TABS 1 TABLET DAILY Active Multiple Vitamin (MULTIVITAMINS) OR CAPS None Entered Active [place]-3 Fatty Acids (OMEGA 3) 1000 MG OR CAPS 3 CAPSULES DAILY WITH A MEAL Active Cholecalciferol (VITAMIN D) 1000 UNIT OR CAPS 1 CAPSULE DAILY Active Active Problems Problem Noted Date Diagnosed Date [facility] arthritis, thumb, degenerative 07/18/2011 Social History Tobacco Use Types Packs/Day Years Used Date Smoking Tobacco: Never Smokeless Tobacco: Never Alcohol Use Standard Drinks/Week Comments Not Asked 0 (1 standard drink = 0.6 oz pur e alcohol) Comments No Sex and Gender Information Value Date Recorded Sex Assigned at Not on file Legal Sex Female 1:37 AM EDT Gender Identity Not on file Sexual Orientation Not on file Last Filed Vital Signs Vital Sign Reading Time Taken Comments Blood Pressure 110/76 06/23/2011 10:22 AM EDT Pulse 64 06/23/2011 10:22 AM EDT Temperature 36.3 ??C (97.4 ??F) 06/23/2011 10:22 AM E DT Respiratory Rate 16 06/23/2011 10:22 AM EDT Oxygen Saturation - - Inhaled Oxygen Concentration - - Weight 57.6 kg (127 lb) 06/23/2011 10:22 AM EDT Height 160 cm (5' 3 ) 06/23/2011 10:22 AM EDT Body Mass Index 22.5 06/23/2011 10:22 AM EDT Plan of Treatment Health Maintenance Due Date Last Done Comments Hepatitis C Screening 1950 DTaP/Tdap/Td (1 - Tdap) 01/11/1966 Pneumococcal 50+ years (1 of 1 - PCV) 01/11/1998 Zoster (Shingrix) (1 of 2) 01/11/1998 Bone Density 01/11/2013 RSV (1 - 1-dose 75+ series) 01/11/2023 COVID-19 Vaccine (1 - 2023-2 5 season) 2024 Influenza (#1) 2024 HPV Vaccine Aged Out No longer eligi ble based on patient's age to complete this topic Hep A Aged Out No longer eligi ble based on patient's age to complete this topic Hep B Aged Out No longer eligi ble based on patient's age to complete this topic Hib Aged Out No longer eligi ble based on patient's age to complete this topic Mammogram/Breast Imaging Discontinued Meningococcal ACWY Aged Out No longer eligible based on patient's age to complete this topic Pap Smear Discontinued Zoster (Zostavax) Discontinued Insurance Care Teams Registered Medical Transcriptionist Relationship Specialty Start Date End Date Mario Alberto Lozano [facility] [address] [place] [phone] PCP - General Internal Medicine 01/27/11
[2025-02-22 10:33] VITALS: BP 148/90; PULSE 73; RESP 15; TEMP 36.8; O2SAT 97; BMI 27.6
--- NOTE | 2025-02-22 10:33 | MHC.OFFWIV ---
Intake Vital Signs 02/22/25 10:33 02/22/25 11:04 Height 5 ft 3 in Weight 156 lb BMI 27.6 BP 148/90 H 120/76 Blood Pressure Location Lt brachial Lt brachial Position Sitting Sitting Respiration 15 Pulse 73 Pulse Source Pulse Oximeter Temp 98.3 F Temp Source Oral Pulse Oximetry (%) 97 Oxygen Delivery Method Room Air Intake Visit Reasons: EP ? UTI Intake Note: Pt is here today c/o burning upon urination since this morning Patient Tobacco Use Status: Never used Tobacco Allergies acetazolamide [From DIAMOX SEQUELS] Allergy (Intermediate, Verified 02/22/25 11:00) HEART PALP amoxicillin [AMOXICILLIN] Allergy (Intermediate, Verified 02/22/25 11:00) RASH prednisone Allergy (Unknown, Verified 02/22/25 11:00) paplpitations, insomnia Sulfa (Sulfonamide Antibiotics) Adverse Reaction (Mild, Verified 02/22/25 11:00) Anaphylaxis sulfamethoxazole [From Bactrim] Adverse Reaction (Mild, Verified 02/22/25 11:00) Anaphylaxis trimethoprim [From Bactrim] Adverse Reaction (Mild, Verified 02/22/25 11:00) Anaphylaxis amoxiciilin Allergy (Unknown, Uncoded 02/22/25 10:33) Rash Diamox Sequels Allergy (Unknown, Uncoded 02/22/25 10:33) rapid heart rate visceral sutures Allergy (Unknown, Uncoded 02/22/25 10:33) not healing Medication List - Last Reconciled 02/22/25 by Zunilda Rutherford, INTERIOR PANELER- hydroxychloroquine 200 mg PO BID ibuprofen 800 mg PO BID PRN levothyroxine 50 mcg PO DAILY rosuvastatin 5 mg PO DAILY HPI HPI Comments History of Present Illness Details History of Present Illness - The patient is a 75-year-old female presenting with burning sensation during urination. - Symptoms started this morning. - History of UTI, last two years ago. - Denies fever, back pain, vaginal d/c, concern for STD, abd pain, hx of renal stones or vomiting. - Admits poor po intake over the last few days Review of Systems - Genitourinary: Reports burning sensation with urination, pressure sensation; Denies fever, chills, back or belly pain, nausea, vomiting, vaginal discharge or itching. - Infectious Disease: Denies fever, chills. - Gastrointestinal: Denies nausea, vomiting. - Sexual Health: Denies concerns for sexually transmitted diseases. Physical Exam General: Well developed, well nourished, in no acute distress. Appears stated age. Head: Normocephalic, atraumatic. MMM Heart: Regular rate and rhythm. No murmurs, click, rubs or gallops are noted. Abdomen: Bowel sounds present in all quadrants. The abdomen is soft, nontender, with no masses or organomegaly noted. No hernias are noted. Pressure noted with palp over the suprapubic area. No CVAT bilat Diagnostic results - Negative urinalysis for nitrites, blood, leukocytes. - Antibiotic allergies, uncertain tolerance to cephalexin. Discussion Notes I discussed with the patient the likely diagnosis of a urinary tract infection despite a negative urinalysis initially, due to the acute onset of symptoms. I explained that early symptoms might not reflect in lab results immediately. I recommended treatment with cephalexin, assuring the patient that it is not related to other antibiotics she is allergic to, such as Cipro and Bactrim. I emphasized the importance of increasing fluid intake, and mentioned that cranberry products might assist in flushing the urinary system. I advised [id number] Pyridium to alleviate urinary burning, cautioning that it might cause orange discoloration of urine. I outlined the need to seek additional care if symptoms worsen or if new symptoms like high fever, chills, or vomiting occur. I informed her that prescriptions have been sent to her local pharmacy. The patient expressed no further questions and consented to the treatment plan. Assessment and Plan 1. Urinary Tract Infection (UTI) - Suspected early UTI, prescribed Cephalexin twice daily for five days. - Recommend Pyridium for symptom relief. - Instructed on fluid intake and cranberry products. - Signs for additional care: high fever, severe symptoms. - Prescriptions to [facility] on [address]. Patient Instructions - Take Cephalexin twice a day for five days. - Use Pyridium for burning during urination. - Drink lots of fluids, including cranberry juice. - Go to the doctor if you get a high fever, bad chills, or vomiting. - Your prescriptions are at the [facility] on [address]. Consent Patient was informed and verbally consented to the use of an ambient scribe for clinic note documentation during this visit. [facility] Social History Patient Tobacco Use Status: Never used Tobacco Physical Exam Vital Signs: Last Vital Signs Temp 98.3 F 02/22/25 10:33 Pulse 73 02/22/25 10:33 Resp 15 02/22/25 10:33 BP 148/90 H 02/22/25 10:33 Pulse Ox 97 02/22/25 10:33 Oxygen Delivery Method Room Air 02/22/25 10:33 BMI result Body Mass Index 27.6 Results AMB Urinalysis, Automated UA Leukoctes 3 Alisia/uL Last Edit by Marta Donnelly CMA on 02/22/25 10:53 UA Nitrite Negative Last Edit by Marta Donnelly, SAKSHI on 02/22/25 10:53 UA Urobilinogen 0 mg/dL Last Edit by Marta Donnelly, SAKSHI on 02/22/25 10:53 UA Protein 2 mg/dL Last Edit by Marta Donnelly, SAKSHI on 02/22/25 10:53 UA pH 7.0 Last Edit by Marta Donnelly, REINSTATEMENT CLERK on 02/22/25 10:53 UA Blood 0 Niko/uL Last Edit by Marta Donnelly, REINSTATEMENT CLERK on 02/22/25 10:53 UA Specific [place] 1.020 Last Edit by Marta Donnelly CMA on 02/22/25 10:53 UA Ketone Negative Last Edit by Marta Donnelly, SAKSHI on 02/22/25 10:53 UA Bilirubin 0 mg/dL Last Edit by aMrta Donnelly, SAKSHI on 02/22/25 10:53 UA Glucose 0 mg/dL Last Edit by Marta Donnelly, SAKSHI on 02/22/25 10:53 Results Reviewed Results Reviewed: Laboratory Last Values Urine pH (Auto) 7.0 02/22/25 10:32 Specific [place] (Auto) 1.020 02/22/25 10:32 Urine Protein (Auto) 2 mg/dL 02/22/25 10:32 Glucose (UA)(Auto) 0 mg/dL 02/22/25 10:32 Urine Ketones (Auto) Negative 02/22/25 10:32 Urine Blood (Auto) 0 Niko/uL 02/22/25 10:32 Urine Nitrite (Auto) Negative 02/22/25 10:32 Urine Bilirubin (Auto) 0 mg/dL 02/22/25 10:32 Urine Urobilinogen (Auto) 0 mg/dL 02/22/25 10:32 Leukocyte Esterase (Auto) 3 Alisia/uL 02/22/25 10:32 Assessment & Plan Assessment & Plan (1) Dysuria: Code(s): R30.0 - Dysuria Plan . Orders: Orders AMB Urinalysis Automated Today Z13.9 - Encounter for screening, unspecified Medications: New phenazopyridine (Pyridium) 100 mg PO TID PRN 6 tabs 0RF pain cephalexin 500 mg PO Q12H 5 days 10 caps 0RF Patient Instructions: - Take Cephalexin twice a day for five days. - Use Pyridium for burning during urination. - Drink lots of fluids, including cranberry juice. - Go to the doctor if you get a high fever, bad chills, or vomiting. - Your prescriptions are at the [facility] on [facility]. Coding Level of Care Code Est Pt Level 4 (82599) Diagnoses Dysuria R30.0
[2025-02-22 11:04] VITALS: BP 120/76
== END 2025-02-22 11:13 | disposition home or self-care (01) ==
PROVIDERS: Visit Provider Nurse Practitioner Family
DX: Z13.9 Encounter for screening, unspecified (principal); R30.0 Dysuria

== ENCOUNTER → 2025-02-22 10:29 | Outpatient (BNVA) | payer MEDICARE, OTHER, SELFPAY | PROVIDERS: Visit Provider Nurse Practitioner Family | DX: R30.0 Dysuria (principal) | CPT/HCPCS: 81003; 99212 ==

== ENCOUNTER 2025-08-11 09:11 | Outpatient (REF) | payer MEDICARE, OTHER, SELFPAY ==
[2025-08-11 14:32] LABS: Resp Syncy Virus RNA Qual PCR NEGATIVE (Negative); SARS COV2 PCR INHOUSE NEGATIVE (Negative)
--- OUTSIDE RECORDS SUMMARY | 2025-08-12 01:37 | XMS_ITS | Data Portability ---
Author Organization NUNO cervantes [facility] Address [address] [place] [address] Assessment No assessment recorded. Plan of Treatment Reminders Order Date Submit Date Provider Last Modified By Organization Details Last Modified Time Details Appointments None recorded. Lab rapid SARS CoV 2 Ag, QL IA, respiratory specimen 2021 022 [email or web address] [facility], [address] [place] [address], [phone], 18:52:53 Referral None recorded. Procedures None recorded. Surgeries None recorded. Imaging None recorded. Medication Orders None recorded. Patient TargetsNo targets recorded. Patient Instructions Encounter Date Encounter Id Patient Instructions Last Modified By Organization Details Last Modified Time 09/11/2022 [id number] cough: care instructions Not available 09/11/2022 18:52:53 The cause of you r cough is hard to pin down but your COVID test was negative. We suggest increased fluids, rest, humidifier and avoid cough triggers. Continue with the tessalon but try increasing to two capsules every 8 hours. Follow up with your PCP as needed. Not available 09/11/2022 18:52:52 Reason for Referral None Reported. Results Created Date Observation Date Name Description Value Unit Range Abnormal Flag Note LastModifiedBy Organization Detail LastModifiedTime 09/11/20 22 09/11/2022 rapid SARS CoV 2 Ag, QL IA, respi rator y speci men Unknown Analyte Normal =Negat juliocesar Not Available _traci [address], [address], 09/11/2022 17:15:00 09/11/20 22 09/11/2022 rapid SARS CoV 2 Ag, QL IA, respi rator y speci men Unknown Analyte negati ve Not Available [facility] [address] [place] [address], [place], [address], 09/11/2022 17:15:00 Result Notes None recorded. Problems Name Problem SNOMED Code Status Onset Date Resolution Date Notes Provider Name and Address Organization Details Recorded Time Lupus erythematosus 335926852 Active 2021 IVIS james, [place] - [facility] 2 17:08:05 Gastroesophage al reflux disease 298625677 Active 2021 IVIS OH null, PA - [facility] 2 17:08:12 Hyperlipidemia 62088303 Active 2021 IVIS [place] null, PA - [facility] 2 17:08:29 Depressive disorder 51643794 Active 2021 IVIS OH null, PA - [facility] 2 17:08:41 Hypothyroidism 87768397 Active 2021 IVIS OH null, PA - [facility] 2 17:09:06 Problem Notes None recorded. Procedures Surgical History Date Name Laterality Status Provider Name and Address Organization Details Recorded Time procedure on hand completed IVIS OH PA - [facility] 09/11/2022 17:10:06 Carpal tunnel surgery completed IVIS OH PA - [facility] 09/11/2022 17:10:12 Knee arthroscopy/faye matt completed IVIS OH PA - [facility] 09/11/2022 17:10:24 Imaging Results None recorded. Procedure Notes None recorded. Medical Equipment None Reported. Allergies Allergen ID Allergen Name Allergen Category Reaction Reaction Severity Criticality Documentation Date Start Date Code Code System Note Provider Name and Address Organization Details Recorded Time 49377 amoxicill in medicatio n Not available Not available Not available 09/11/2022 723 RxNorm IVIS james, PA - [facility] 2 17:06:17 33593 ampicilli n medicatio n Not available Not available Not available 09/11/2022 733 RxNorm IVIS GUERREROBEVERLY james, PA - [facility] 2 17:06:21 26852 Substance with sulfonami de structure and antibacte rial mechanism of action (substanc e) medicatio n Not available Not available Not available 09/11/2022 71679 8003 SNOMED IVIS ADRIANO james, PA - [facility] 2 17:06:27 97679 prednison e medicatio n Not available Not available Not available 09/11/2022 8640 RxNorm IVIS ADRIANO james, PA - [facility] 2 17:06:34 Medications Name Sig Start Date Stop Date Status Note LastModified by Organization Details LastModified Time ibuprofen 800 mg tablet TAKE 0.75 TABLET BY MOUTH NIGHTLY AT BEDTIME NEEDED FOR PAIN active Not Available Not Available No t Available citalopram 10 mg tablet TAKE 1 TABLET BY MOUTH EVERY DAY active Not Available Not Available No t Available sulfamethox azole 800 mg-trimetho prim 160 mg tablet TAKE 1 TABLET BY MOUTH EVERY 12 HOURS FOR 5 DAYS 09/11 completed Not Available Not Available Not Available omeprazole 40 mg capsule,del ayed release TAKE 1 CAPSULE (40 MG TOTAL) BY MOUTH DAILY. active Not Available Not Available No t Available phenazopyri dine 100 mg tablet TAKE 1 TABLET BY MOUTH 3 TIMES A DAY NEEDED FOR PAIN FOR 2 DAYS 09/11 completed Not Available Not Available Not Available benzonatate 100 mg capsule TAKE 1 CAPSULE BY MOUTH THREE TIMES A DAY NEEDED FOR COUGH 09/11 completed Not Available Not Available Not Available levothyroxi ne 50 mcg tablet PLEASE SEE ATTACHED FOR DETAILED DIRECTION S active Not Available Not Available No t Available hydroxychlo roquine 200 mg tablet TAKE 1 TABLET BY MOUTH TWICE A DAY active Not Available Not Available No t Available rosuvastati n 5 mg tablet TAKE 1 TABLET (5 MG TOTAL) BY MOUTH DAILY. active Not Available Not Available No t Available Paxlovid 300 mg (150 mg x 2)-100 mg tablets in a dose pack TAKE 3 TABLETS BY MOUTH TWICE A DAY FOR 5 DAYS 09/11 completed Not Available Not Available Not Available Vitals Date Recorded Body height Body mass index (BMI) Body weight Body temperature Respiratory rate Heart rate Oxygen saturation Oxygen saturation in Arterial blood by Pulse oximetry Systolic And Diastolic Provider Name and Address Organization Details Last Updated DateTime 2 160.02 cm 24.8 kg/m2 10061.9 3 g 96.9 [degF] 18 /min 71 /min 98 % 98 % 143/81 mm[Hg] IVIS Collins [facility] 17:12:14 Social History Question Answer Notes LastModified by [employer] Details LastModified Time Tobacco Smoking Status Never Smoker [facility] 09/11/2022 17:09:41 Have You Had Direct Contact, Or Contact During Intimacy, With Monkeypox Rash, Scabs, Or Body Fluids From A Person With Monkeypox? No Information not available 09/11/2022 Have You Recently Traveled Abroad? No Information not available 09/11/2022 Are You Currently In School? No Information not available 09/11/2022 Sex: Unknown Functional Status Question Answer Note LastModified by [employer] Details LastModified Time Do you use any illicit or recreational drugs? No Information not available 09/11/2022 Do you or have you ever used any other forms of tobacco or nicotine? No Information not available 09/11/2022 What is your level of alcohol consumption? None Information not available 09/11/2022 Are you currently employed? No Information not available 09/11/2022 Mental Status None recorded. Family History Relationship Description Onset Age of this Age Resolved Age Notes LastModified by Organization Details LastModified Time Mother Heart disease Not available 09/11 17:09:23 Medical History No medical history recorded. Gynecological HistoryNo gynecological history recorded. Obstetrics History GPAL:G 0 P 0 0 0 0 Immunizations Vaccine Type Date Status Note Provider Nam e and Address Organization Details Recorded Time Pneumococcal conjugate PCV 13 7 completed NUNO [facility]ray [facility] 09/11/2022 17:05:58 Influenza, high-dose, quadrivalent, PF 0 completed IVIS RODRIGUEZND null, PA - [facility] 09/11/2022 17:05:58 COVID-19, mRNA, LNP-S, PF, 30 mcg/0.3 mL dose 1 completed IVIS GUERREROHIND null, PA - [facility] 09/11/2022 17:05:58 Influenza, adjuvanted, quadrivalent, PF 1 completed IVIS GOODHIND null, PA - [facility] 09/11/2022 17:05:58 COVID-19, mRNA, LNP-S, PF, 30 mcg/0.3 mL dose 1 completed IVIS RODRIGUEZND null, PA - [facility] 09/11/2022 17:05:58 COVID-19, mRNA, LNP-S, PF, 30 mcg/0.3 mL dose, ulysses-sucrose 2 completed IVIS RODRIGUEZND null, PA - [facility] 09/11/2022 17:05:58 Influenza, high-dose, quadrivalent, PF 2 completed IVIS [place] null, PA - [facility] 09/11/2022 17:05:58 Influenza, high-dose, trivalent, PF 8 completed IVIS RODRIGUEZND null, PA - [facility] 09/11/2022 17:05:58 Influenza, adjuvanted, trivalent, PF 9 completed IVIS RODRIGUEZND null, PA - [facility] 09/11/2022 17:05:58 Tdap 9 completed IVIS GUERREROHIND null, PA - [facility] 09/11/2022 17:05:58 COVID-19, mRNA, LNP-S, bivalent, PF, 30 mcg/0.3 mL dose 2 completed IVIS RODRIGUEZND null, PA - [facility] 09/11/2022 17:05:58 Past Encounters Encounter ID Performer Location Encounter Start Date Encounter Closed Date Diagnosis/Indication Diagnosis SNOMED-CT Code Diagnosis ICD10 Code Diagnosis IMO Codes Diagnosis Note [id number] [address] [place] [address] 01/14/2019 18:41:46 01/14/2019 19:04:36 [id number] [address] [place] [address] 08/08/2017 09:01:24 08/08/2017 10:39:13 [id number] [address] [place] [address] 07/24/2021 08:10:00 07/24/2021 10:05:39 [id number] [address] [place] [address] 07/13/2018 11:44:10 07/13/2018 12:49:45 [id number] [address] [place] [address] 01/22/2022 10:40:44 01/22/2022 12:11:34 [id number] [address] [place] [address] 01/24/2022 15:04:54 01/24/2022 18:25:29 [id number] [address] [place] [address] 09/27/2017 10:21:25 09/27/2017 11:46:19 [id number] [address] [place] [address] 05/16/2021 10:19:04 05/16/2021 14:02:36 [id number] [address] [place] [address] 04/02/2020 08:21:08 04/02/2020 09:12:37 [id number] [address] [place] [address] 01/08/2017 14:13:52 01/08/2017 15:09:16 [id number] [address] [place] [address] 05/22/2017 14:22:33 05/22/2017 15:05:37 [id number] [address] [place] [address] 07/25/2019 17:13:30 07/25/2019 18:26:54 [id number] NUNO Louise [address] [place] [address] 09/11/2022 15:03:48 09/11/2022 18:54:13 Cough 37705511 R05.9 Health Concerns Section Related Observation LastModified by Organization Detai ls LastModified Time None Recorded Concern Status LastModified by Organization Details LastModified Time None Recorded Advance Directives Directive None Recorded Payers Insurance Date Sequence Insurance Name Policy Number Policy Guthrie Covered Member ID Guthrie Member ID Guarantor Name 09/11/2022 1 [place]: [facility] Tamika Samano [id number] Tamika Samano 09/11/2022 2 [place] [place] - PLAN 1 (MEDICARE SUPPLEMENT) [id number] Tamika Samano [id number] Tamika Samano Notes Date Note Type Note Provider Name and Address Organization Details Recorded Time 2 text/html CoughReported by PatientHPIFor quality, patient reportsharshanddry(desc ribes as hacking). For severity, patient reportspain with coughbut reportsmoderate. For source of patient information, patient reportsinformation obtained from patientandpatient arrived at urgent care ambulatory. For duration, patient reports2 days. For context, patient reportsnon-smoker. For modifying factors, patient reportscough suppressant (no change on tessalon). For associated symptoms, patient reportsno wheezing. NUNO Smith [address] [place], [address], [place] - [facility] 09/11/2022 18:53:09 OBGyn Episode No OBEpisode recorded.
--- OUTSIDE RECORDS SUMMARY | 2025-08-12 01:37 | XMS_ITS | Data Portability ---
Author Organization [facility], [employer], [facility] Main Office Address [address] [place] [address] Care Team Providers Care Customer Solutions Specialist Name Role Phone KEISHA العراقي Primary Care Provider KEISHA العراقي Referring Provider [phone] Assessment Encounter Date Assessment Date Assessment LastModified by Organization Details LastModified Time 08/12/2021 08/12/2021 overall this patient is doing well after the A1 luis releases of the left thumb and middle finger. She has some residual PIP joint stiffness with a correctable contracture. I recommended aggressive stretching in extension and I told the patient that these symptoms can linger for several months after a trigger release but will resolve. She will call if there is any further issues after another 8-12 weeks. Not available 08/12/2021 12:42:40 11/22/2022 11/22/2022 This patient has triggering of the left small and ring fingers. We once again had a lengthy question and answer session regarding the ongoing clinical isssues. At the end of this discussion and question and answer session we have agreed to proceed with A1 luis releases of these 2 digits. We had a discussion regarding the procedure specific risks and complications. The risks and complications of the proposed surgery were fully outlined and discussed at great length. The specific details of this surgical procedure, risks related to this specific surgery and anatomic area were discussed. Injury to local nerve structures, vascular structures, tendon structures or other soft tissue injury requiring either immediate or later treatment and repair. The anesthesia options and the length of recovery typically needed to return to normal daily and work activities was provided to the patient. The patient was then provided an opportunity to ask questions after which they attested to fully understanding and comprehending the discussion, that alternatives to the treatment plan were discussed but not advised as the appropriate option at this time, and the expected, but not guaranteed, outcome of surgery anticipated. Consent was then signed. The process of scheduling surgery will be initiated and the patient is encouraged to call with any clinical or medical health changes or other questions prior to surgery. Over 30 minutes spent in [id number] consultation today. Not available 11/22/2022 11:53:14 12/27/2022 12/27/2022 The patient is here for their initial postoperative visit. Sutures are removed/trimmed and steri-strips applied. Wound intact and no signs of inflammation or infection. We discussed findings at surgery and the possibility of ongoing swelling, pain and limited function for several more weeks. The postoperative instructions for wound care and advancement in activity discussed. Patient instructed to call with any concerns. Not available 12/27/2022 13:17:10 Plan of Treatment Reminders Order Date Submit Date Provider Last Modified By Organization Details Last Modified Time Details Appointments None record ed. Lab None record ed. Referral None record ed. Procedures None record ed. Surgeries None record ed. Imaging None record ed. Medication Orders None record ed. Patient TargetsNo targets recorded. Patient InstructionsNo instructions recorded. Reason for Referral None Reported. Procedures Surgical History Date Name Laterality Status Provider Name and Address Organization Details Recorded Time 07/07/2021 .spctrigge r kitty Markham MD [address] [place] [address], [id number] [place] [address], [facility] 07/07/2021 08:49:50 Imaging Results None recorded. Procedure Notes None recorded. Medical Equipment None Reported. Allergies Allergen ID Allergen Name Allergen Category Reaction Reaction Severity Criticality Documentation Date Start Date Code Code System Note Provider Name and Address Organization Details Recorded Time 18498 amoxicill in medicatio n Not available Not available Not available 07/01/2021 723 RxNorm Maribel james [facility] [place], [facility] 13:26:51 91914 Diamox medicatio n Not available Not available Not available 07/01/2021 05150 9 RxNorm Maribel james [facility] [place], [facility] 13:27:00 17394 ampicilli n medicatio n Not available Not available Not available 07/01/2021 733 RxNorm Maribel james [place] - [facility] [place], [facility] 13:27:13 34497 suture Not available Not available Not available Not available 07/01/2021 Maribel james [place] - [facility] [place], [facility] 13:27:45 Medications Name Sig Start Date Stop Date Status Note LastModified by Organization Details LastModified Time trazodone 50 mg tablet TAKE 1 TABLET (50 MG TOTAL) BY MOUTH NIGHTLY AT BEDTIME FOR 10 DAYS. active Not Available Not Available No t Available azithromycin 250 mg tablet TAKE 2 TABLETS BY MOUTH TODAY, THEN TAKE 1 TABLET DAILY FOR 4 DAYS active Not Available Not Available No t Available ibuprofen 800 mg tablet TAKE 0.75 TABLET BY MOUTH NIGHTLY AT BEDTIME NEEDED FOR PAIN active Not Available Not Available No t Available citalopram 10 mg tablet TAKE 1 TABLET BY MOUTH EVERY DAY active Not Available Not Available No t Available ondansetron HCl 4 mg tablet Take 2 tablets twice a day by oral route. active Not Available Not Available No t Available sulfamethoxa zole 800 mg-trimethop rim 160 mg tablet TAKE 1 TABLET BY MOUTH TWICE A DAY FOR 7 DAYS active Not Available Not Available No t Available omeprazole 40 mg capsule,vinay yed release TAKE 1 CAPSULE (40 MG TOTAL) BY MOUTH DAILY. active Not Available Not Available No t Available metocloprami de 5 mg tablet TAKE 2 TABLETS BY MOUTH 2 TIMES A DAY NEEDED FOR NAUSEA/VOMI TING active Not Available Not Available No t Available phenazopyrid ine 100 mg tablet TAKE 1 TABLET (100 MG TOTAL) BY MOUTH 3 TIMES A DAY NEEDED FOR PAIN active Not Available Not Available No t Available benzonatate 100 mg capsule TAKE 1 CAPSULE BY MOUTH 3 TIMES A DAY NEEDED FOR COUGH active Not Available Not Available No t Available doxycycline monohydrate 100 mg capsule TAKE 1 CAPSULE BY MOUTH TWICE A DAY FOR 7 DAYS active Not Available Not Available No t Available levothyroxin e 50 mcg tablet PLEASE SEE ATTACHED FOR DETAILED DIRECTIONS active Not Available Not Available N ot Available Banophen 25 mg capsule TAKE 1 CAPSULE BY MOUTH 3 TIMES A DAY NEEDED FOR NAUSEA AND VOMITING active Not Available Not Available No t Available codeine 10 mg-guaifenes in 100 mg/5 mL oral liquid active Not Available Not Available Not Available hydroxychlor oquine 200 mg tablet TAKE 1 TABLET BY MOUTH TWICE A DAY active Not Available Not Available No t Available albuterol sulfate HFA 90 mcg/actuatio n aerosol inhaler INHALE 2 PUFFS BY MOUTH EVERY 4-6 HOURS NEEDED FOR WHEEZING active Not Available Not Available No t Available ondansetron 4 mg disintegrati ng tablet TAKE 1 TABLET BY MOUTH EVERY 6 TO 8 HOURS NEEDED FOR NAUSEA AND VOMITING active Not Available Not Available No t Available fluticasone propionate 50 mcg/actuatio n nasal spray,suspen ted active Not Available Not Available Not Available oxycodone 5 mg tablet Take 1 tablet every 4 hours by oral route. 2022 active Not Available Not Available Not Avai lable rosuvastatin 5 mg tablet TAKE 1 TABLET (5 MG TOTAL) BY MOUTH DAILY. active Not Available Not Available No t Available Paxlovid 300 mg (150 mg x 2)-100 mg tablets in a dose pack TAKE 3 TABLETS BY MOUTH TWICE A DAY FOR 5 DAYS active Not Available Not Available No t Available Vitals Date Recorded Body height Provider Name an d Address Organization Details Last Updated DateTime 10/20/2021 160.02 cm Bravofly [facility] [place], [facility] 10/20/2021 08:47:03 Date Recorded Body height Provider Name an d Address Organization Details Last Updated DateTime 08/12/2021 160.02 cm Bravofly [facility] [place], [facility] 08/12/2021 11:17:57 Social History None recorded. Functional Status None recorded. Mental Status None recorded. Family History Nothing Reported. Medical History No medical history recorded. Gynecological HistoryNo gynecological history recorded. 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 1626120744 93146 M65.332 [id number] Zeferino Markham MD [facility] Main Office [address] [place] [address] 07/07/2021 08:22:41 07/07/2021 11:04:57 Trigger thumb of left hand 0898555256 44801 M65.312 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 8852084961 82900 M65.332 [id number] Zeferino Markham MD [facility] Main Office [address] [place] [address] 07/20/2021 10:01:13 07/21/2021 11:49:55 Trigger thumb of left hand 2535377019 37497 M65.312 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 0688880600 78293 M65.332 [id number] Zeferino Markham MD [facility] Main Office [address] [place] [address] 08/12/2021 11:03:52 08/12/2021 15:54:24 Trigger thumb of left hand 3074598389 81217 M65.312 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 0430577588 08229 M65.332 [id number] Zeferino Markham MD [facility] Main Office [address] [place] [address] 11/22/2022 11:15:07 11/22/2022 11:57:14 Acquired trigger finger of left ring finger 7074111997 07243 M65.342 Acquired t turkey egg gatherer finger of left little finger 5736062533 90988 M65.352 [id number] Zeferino Markham MD [facility] Main Office [address] [place] [address] 12/27/2022 10:21:51 12/28/2022 13:56:07 Acquired trigger finger of left little finger 0958315792 90480 M65.352 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 1048645911 16211 M65.342 Health Concerns Section Related Observation LastModified by Organization Detai ls LastModified Time None Recorded Concern Status LastModified by Organization Details LastModified Time None Recorded Advance Directives Directive None Recorded Payers Insurance Date Sequence Insurance Name Policy Number Policy Guthrie Covered Member ID Guthrie Member ID Guarantor Name 12/26/2022 2 [facility] - PLAN 1 (MEDICARE SUPPLEMENT) [id number] Tamika Samano [id number] Tamika Samano 12/26/2022 1 MEDICARE [place]: [facility] Tamika Samano [id number] Tamika Samano Notes Date Note Type Note Provider Name and Address Organization Details Recorded Time 08/12/2021 text/html this patient is here status post a left thumb and left middle finger trigger release she is still having some stiffness in the PIP joint of the middle finger otherwise she has no complaints. Zeferino Markham MD [address] [place] [address], [phone], [employer] [facility] [facility] 08/12/2021 12:43:08 11/22/2022 text/html This patient is here because of pain and loss of flexion of the left ring and small fingers predominantly. She has a history of trigger fingers and other hand muscular skeletal issues. Zeferino Markham MD [address] [place] [address], [place], [address], [facility] [place], [employer] 11/22/2022 11:53:46 OBGyn Episode No OBEpisode recorded.
--- OUTSIDE RECORDS SUMMARY | 2025-08-12 01:37 | XMS_ITS | Clinical Summary ---
Author Organization [facility] Address [address] [place] [address] Care Team Providers Care Launderette Attendant Name Role Phone Mario Alberto Lozano Primary Care Provider [phone] Allergies Active Allergy Reactions Criticality Noted Date Comments Amoxicillin 03/01/2011 Ampicillin 03/01/2011 Acetazolamide 03/01/2011 Medications Aspirin 81 MG OR TABS 1 TABLET DAILY Active Multiple Vitamin (MULTIVITAMINS) OR CAPS None Entered Active [place]-3 Fatty Acids (OMEGA 3) 1000 MG OR [...] 64 06/23/2011 10:22 AM EDT Temperature 36.3 C (97.4 F) 06/23/2011 10:22 AM EDT Respiratory Rate 16 06/23/2011 10:22 AM EDT [...] 75+ series) 01/11/2023 COVID-19 Vaccine (1 - 2024-2 6 season) 2025 Influenza (#1) 2025 HPV Vaccine (No Doses Required) Completed Hep A Aged Out No longer eligi [...] Discontinued Zoster (Zostavax) Discontinued Insurance Care Teams Launderette Attendant Relationship Specialty Start Date End Date Mario Alberto Lozano [facility] [address] [place] [address] [phone] PCP - General Internal Medicine 01/27/11
== END 2025-08-11 09:12 | disposition home or self-care (01) ==
LOC: HO.LNP 09:11
PROVIDERS: Visit Provider Physician Assistant Medical
DX: R05.1 Acute cough (principal); R09.89 Other specified symptoms and signs involving the circulatory and respiratory systems
CPT/HCPCS: 87637; 99212

== ENCOUNTER 2025-08-11 09:11 | Outpatient (AMB) | payer MEDICARE, OTHER, SELFPAY ==
[2025-08-11 09:18] VITALS: BP 130/84; PULSE 66; TEMP 36.4; O2SAT 98; BMI 26.0
--- NOTE | 2025-08-11 09:18 | AM.OFFWIN_ITS ---
Intake Vital Signs 08/11/25 09:18 Height 5 ft 3 in Weight 147 lb BMI 26.0 BP 130/84 Blood Pressure Location Lt brachial Position Sitting Pulse 66 Pulse Source Pulse Oximeter Temp 97.5 F Temp Source Oral Pulse Oximetry (%) 98 Oxygen Delivery Method Room Air Intake Visit Reasons: EP Bad cough Intake Note: Patient presents c/o really bad cough x3 days. Patient is 2 months post op for lung cancer. Patient Tobacco Use Status: Never used Tobacco Allergies acetazolamide (From DIAMOX SEQUELS) Allergy (Intermediate, Verified 08/11/25 09:21) HEART PALP amoxicillin (AMOXICILLIN) Allergy (Intermediate, Verified 08/11/25 09:21) RASH prednisone Allergy (Unknown, Verified 08/11/25 09:21) paplpitations, insomnia Sulfa (Sulfonamide Antibiotics) Adverse Reaction (Mild, Verified 08/11/25 09:21) Anaphylaxis sulfamethoxazole (From Bactrim) Adverse Reaction (Mild, Verified 08/11/25 09:21) Anaphylaxis trimethoprim (From Bactrim) Adverse Reaction (Mild, Verified 08/11/25 09:21) Anaphylaxis amoxiciilin Allergy (Unknown, Uncoded 08/11/25 09:21) Rash Diamox Sequels Allergy (Unknown, Uncoded 08/11/25 09:21) rapid heart rate visceral sutures Allergy (Unknown, Uncoded 08/11/25 09:21) not healing HPI HPI Comments History of Present Illness Details History - The patient is a 75-year-old female pr esenting with a cough. - The patient reports a persistent cough described as deep and severe, with occasional phlegm production, but no fever or shortness of breath. - The cough has been managed with cough drops and Mucinex, and previously treated with azithromycin (Z-Claude) and tessalon perles. - The patient is allergic to prednisone, which has caused severe reactions in the past. - The patient underwent lung surgery for adenocarcinoma on June 11 and is currently cancer-free, with no chemotherapy or radiation required. - The lung cancer was detected during a baseline lung scan due to systemic lupus erythematosus, which affects the lungs. - The patient has a history of systemic lupus erythematosus, which has been a significant health challenge over the past year. - She denies fever, chills, CP, SOB, abd pain, n/v/d, ear pain, or sinus pain. Physical Exam General: Cooperative, healthy appearing, comfortable and no acute distress Orientation/consciousness: Patient oriented x3 Limitations: No limitations Head: Normal to inspection Ears: Hearing grossly normal bilaterally, external ears normal, slight redness noted Nose: Normal external nose present, normal nares present, and no nasal discharge present. Face and sinus: Sinuses nontender to palpation. Mouth: Normal oral and palatal mucosa present and moist mucous membranes noted. Throat: Tonsils normal. Uvula is midline. Posterior oropharynx with erythema and no exudates. Eyes: Appearance normal, both eyes and all related structures Neck: Normal visual inspection, full ROM. No lymphadenopathy noted. Respiratory: Clear to auscultation bilaterally. Normal respiratory effort, able to speak in complete sentences. No respiratory distress, not tachypneic, no tripod positioning and no use of accessory muscles. Cardiovascular: Regular rate and rhythm. Normal S1 and S2 Skin: No rashes or lesions noted Patient was informed and verbally consented to the use of an ambient scribe for clinic note documentation during this visit [facility] Social History Patient Tobacco Use Status: Never used Tobacco Review of Systems Const All systems reviewed & are unremarkable except as noted in HPI and below Physical Exam Vital Signs: Last Vital Signs Temp 97.5 F 08/11/25 09:18 Pulse 66 08/11/25 09:18 BP 130/84 08/11/25 09:18 Pulse Ox 98 08/11/25 09:18 Oxygen Delivery Method Room Air 08/11/25 09:18 BMI result Body Mass Index 26.0 Assessment & Plan Assessment & Plan (1) Cough: Code(s): R05.9 - Cough, unspecified Qualifiers: Cough type: acute Qualified Code(s): R05.1 - Acute cough Plan Most likely URI vs chronic cough vs bronchitis vs asthma exacerbation vs covid vs flu vs RSV plan - Initiate azithromycin (Z-Claude) as the patient has responded to this in the past. - Prescribe an inhaler to assist with cough management. - tessalon perles as needed for cough. - Perform a rapid COVID-19 test to rule out infection. - Monitor for signs of infection, particularly pneumonia, given the recent surgery. - tylenol or motrin as needed for pain - follow up with PCP. Orders: Orders SARS-CoV2/FLU/RSV 08/11/25 R09.89 - Other specified symptoms and signs involving the circulatory and respiratory systems Medications: New albuterol sulfate 90 mcg/actuation 2 puffs inhalation Q6H PRN 8.5 grams 0RF shortness of breath or wheezing or cough azithromycin For 250 mg dose pack: take 500 mg today (day 1), then 250 mg for 4 days (days 2-5) PO 6 tabs 0RF benzonatate 100 mg PO bid-tid PRN 21 caps 0RF Cough 7 days Coding Level of Care Code Est Pt Level 3 (99077) Diagnoses Acute cough R05.1 Cough type: acute
== END 2025-08-11 10:22 | disposition home or self-care (01) ==
PROVIDERS: Visit Provider Physician Assistant Medical
DX: R05.1 Acute cough (principal)